=== PATIENT | male | born 1945 | race Caucasian/White ===

== ENCOUNTER 2017-01-15 19:54 | Observation (INO) ==
[2017-01-15] MEDS ORDERED: Ipratropium/Albuterol Neb 3 ML IH ONE (20:01)
--- NOTE | 2017-01-15 20:01 | Emergency Department Note ---
Disposition Clinical Impression: Sepsis syndrome Fever Qualifiers: Fever type: unspecified Qualified Code(s): R50.9 - Fever, unspecified Disposition: Admitted As Inpatient Condition: Fair Referrals: Moraima Kaufman CNP [Primary Care Provider] - Forms: ED Satisfaction Letter SOB HPI - General Chief Complaint: ED Shortness of Breath/Dyspnea Stated Complaint: nasrin Time Seen by Provider: 01/15/17 19:56 Source: patient Mode of arrival: private vehicle Limitations: no limitations Nursing Notes Reviewed: Yes Vital Signs Reviewed: Yes - History of Present Illness Patient states he had onset of shortness of breath this a.m. while mowing on a riding lawnmower. He states that he subsequently has had dyspnea on exertion, fever to 103 at home as well as some nausea and lightheadedness. He denies any orthopnea or any increased cough. He denies any ill exposures or any new lower extremity swelling or pain. He states he did have a common femoral artery endarterectomy to his right lower extremity about 4 weeks ago but has not had any pain or swelling to that leg. He has not had unintended weight gain or lower extremity edema. He denies any ill exposures. He did report some scant anterior chest discomfort which he cannot describe. He denies any pain with respiration or motion. He has had significant history of heart disease with triple coronary artery bypass graft in 2008, cardiac stent in 2009 and aortic valve replacement in 2011. Pt Subjective Complaint: shortness of breath Onset (ago): hour(s) Severity: moderate Consistency/Duration: constant Improves with: rest Worsens with: exertion Known history of: COPD, congestive heart failure, diabetes, DVT Associated symptoms: Reports: chest pain (Vague), fever, wheezing, nausea/ vomiting. Denies: pain with inspiration, cough, sputum production, orthopnea, lower extremity pain, polyuria, polydipsia, parasthesias, palpitations, hemoptysis, diaphoresis, syncope, abdominal pain, rash Treatment prior to arrival: none Cough present: No - Related Data Home oxygen amount: none Home Medications Medication Instructions Recorded Confirmed Aspirin Enteric Coated [Aspirin EC] 81 mg PO BID 06/07/15 01/15/17 Lisinopril [Zestril] 20 mg PO DAILY 06/07/15 01/15/17 Metoprolol [Lopressor] 50 mg PO BID 06/07/15 01/15/17 Omeprazole [PriLOSEC] 20 mg PO DAILY 06/07/15 01/15/17 Budesonide/Formoterol 160/4.5 1 puff IH BID 09/28/15 01/15/17 [Symbicort 160/4.5] Albuterol Sulfate [Ventolin Hfa] 2 puff IH Q6H PRN 12/13/16 01/15/17 Metformin HCl [Glucophage] 1,000 mg PO BID 12/13/16 01/15/17 Tiotropium [place] [Spiriva 2 puff IH DAILY 12/13/16 01/15/17 Respimat] Pravastatin Sodium [Pravachol] 20 mg PO 01/15/17 Allergies Allergy/AdvReac Type Severity Reaction Status Date / Time No Known Allergies Allergy Verified 12/13/16 11:51 All systems ED: reviewed and negative except as stated. Past Medical History - Past Medical History Attestation: Yes The following information was validated with the patient. Source: patient, old records reviewed, nursing notes reviewed Medical history: Reports: arthritis, CHF, COPD, coronary artery disease, DVT, diabetes, glaucoma, hyperlipidemia, hypertension, kidney stones, myocardial infarction, peripheral artery disease, valvular heart disease (Aortic stenosis) Surgical history: Reports: angioplasty/stent (2009), coronary bypass (CABG) ( 2008), orthopedic, other (Right hip replacement), vascular surgery (Aortic valve replacement 2011, right common femoral artery endarterectomy 2016), other (Eye laser surgery, lithotripsy) Psychiatric history: Reports: no psych history - Social History Smoking Status: Never smoker Smokeless Tobacco Status: No Alcohol use: Reports: none Drug use: Reports: none Physical Exam - General Limitations: no limitations General appearance: alert, in no apparent distress - Head Head exam: atraumatic, normocephalic, normal inspection - Eye Eye exam: Present: normal appearance, PERRL, EOMI - ENT ENT exam: normal exam, normal oropharynx, mucous membranes moist - Neck Neck exam: Present: normal inspection, full ROM, trachea midline. Absent: tenderness, lymphadenopathy - Chest Chest inspection: Present: normal inspection, symmetric chest wall rise. Absent : tenderness - Respiratory Respiratory exam: Present: wheezes, prolonged expiratory phase. Absent: respiratory distress, accessory muscle use - Cardiovascular Cardiovascular exam: Present: regular rate, normal rhythm, normal heart sounds. Absent: JVD - Abdominal Exam Abdominal exam: Present: soft, Non-Tender, normal bowel sounds. Absent: tenderness, distention, guarding, rebound, rigidity - Extremities Exam Extremities exam: Present: normal inspection, full ROM, normal capillary refill. Absent: tenderness, pedal edema, calf tenderness - Expanded Lower Extremity Exam Neurovascular/Tendon exam: Present: normal capillary refill. Absent: motor deficit, sensory deficit, tendon deficit Gait: observed and normal - Back Exam Back exam: Present: normal inspection, full ROM. Absent: tenderness, CVA tenderness (R), CVA tenderness (L), vertebral tenderness - Neurological Exam Neurological exam: Present: alert, oriented X3 - Psychiatric Psychiatric exam: Present: normal affect, normal mood - Skin Skin exam: Present: warm, dry, intact, normal color. Absent: rash, diaphoresis , pallor Course Course Narrative: 2229: With return of all lab, the EKG and imaging, source for the patient's fever and malaise is unclear. I discussed care with Dr. Blackmon who would like the patient to have urinalysis when he is able to go and to start vancomycin and Rocephin until cultures are returning. This has been discussed with the patient's and himself and they are agreeable with this plan. Verbal orders have been obtained for the patient's admission and first doses of antibiotics have been ordered. Vital Signs Temperature 100.8 F H 01/15/17 19:55 Pulse Rate 97 01/15/17 19:55 Respiratory Rate 32 01/15/17 19:55 Blood Pressure 145/75 01/15/17 19:55 O2 Sat by Pulse Oximetry 95 01/15/17 19:55 Temperature 100.8 F H 01/15/17 19:55 Pulse Rate 99 01/15/17 21:51 Respiratory Rate 20 01/15/17 21:51 Blood Pressure 106/57 01/15/17 21:51 O2 Sat by Pulse Oximetry 91 01/15/17 21:51 Oxygen Delivery Oxygen Delivery Room Air Shortness of Breath/Dyspnea - Differential Diagnosis Likely: acute exacerbation of chronic obstructive airways disease, congestive heart failure, pneumonia - Medical Records Medical records reviewed: Yes I reviewed the patient's medical records. - Lab Data Lab results reviewed: Yes I reviewed the patient's lab results. Result diagrams: 01/15/17 20:30 01/15/17 20:30 Lab Results 01/15/17 01/15/17 01/15/17 Range/Units 20:30 20:30 20:30 WBC 12.6 H (4.3-11.1) K/mcL RBC 4.52 (4.19-5.50) M/mcL Hgb 10.6 L (12.9-16.9) g/dL Hct 33.9 L (37.5-50.1) % MCV 75.0 L (83.0-100.0) fL MCH 23.5 L (28.0-33.3) pg MCHC 31.3 L (31.6-35.5) g/dL RDW 15.6 H (11.5-14.5) % Plt Count 224 (140-400) K/mcL MPV 10.3 (9.4-12.4) fL Immature Gran % 0.6 (0-4) % Seg Neutrophils % 85.1 % Lymphocytes % 7.2 % Monocytes % 6.9 % Eosinophils % 0.0 % Basophils % 0.2 % Neutrophils # 10.7 H (1.6-8.9) K/mcL Lymphocytes # 0.9 (0.6-4.6) K/mcL Monocytes # 0.9 (0.0-1.3) K/mcL Eosinophils # 0.0 (0.0-0.6) K/mcL Basophils # 0.0 (0.0-0.2) K/mcL PT 14.3 H (9.4-12.1) Seconds INR 1.3 APTT 27.7 (26.0-36.0) Seconds D-Dimer 754 H (0-500) ng/mLFEU VBG Lactic Acid (0.5-2.2) mmol/L Sodium 134 L (136-145) mEq/L Potassium 4.4 (3.5-4.5) mEq/L Chloride 100 (98-109) mEq/L Carbon Dioxide 20 (19-29) mEq/L BUN 11 (8-26) mg/dL Creatinine 0.98 (0.72-1.25) mg/dL Est GFR ( Amer) > 60 (> 60) Est GFR (Non-Af Amer) > 60 (> 60) BUN/Creatinine Ratio 11 (6-26) Glucose 186 H (70-99) mg/dL Calculated Osmolality 282 (280-300) Calcium 9.5 (8.6-10.8) mg/dL Troponin I (0-0.03) ng/mL B-Natriuretic Peptide (0-100) pg/mL 01/15/17 01/15/17 01/15/17 Range/Units 20:30 20:30 20:30 WBC (4.3-11.1) K/mcL RBC (4.19-5.50) M/mcL Hgb (12.9-16.9) g/dL Hct (37.5-50.1) % MCV (83.0-100.0) fL MCH (28.0-33.3) pg MCHC (31.6-35.5) g/dL RDW (11.5-14.5) % Plt Count (140-400) K/mcL MPV (9.4-12.4) fL Immature Gran % (0-4) % Seg Neutrophils % % Lymphocytes % % Monocytes % % Eosinophils % % Basophils % % Neutrophils # (1.6-8.9) K/mcL Lymphocytes # (0.6-4.6) K/mcL Monocytes # (0.0-1.3) K/mcL Eosinophils # (0.0-0.6) K/mcL Basophils # (0.0-0.2) K/mcL PT (9.4-12.1) Seconds INR APTT (26.0-36.0) Seconds D-Dimer (0-500) ng/mLFEU VBG Lactic Acid 3.5 H (0.5-2.2) mmol/L Sodium (136-145) mEq/L Potassium (3.5-4.5) mEq/L Chloride (98-109) mEq/L Carbon Dioxide (19-29) mEq/L BUN (8-26) mg/dL Creatinine (0.72-1.25) mg/dL Est GFR ( Amer) (> 60) Est GFR (Non-Af Amer) (> 60) BUN/Creatinine Ratio (6-26) Glucose (70-99) mg/dL Calculated Osmolality (280-300) Calcium (8.6-10.8) mg/dL Troponin I 0.02 (0-0.03) ng/mL B-Natriuretic Peptide 235 H (0-100) pg/mL - Radiology Data Radiology results reviewed: Yes I reviewed the patient's radiology results. Single view chest x-ray is performed. This shows a poor inspiration, but does not demonstrate evidence for infiltrate, effusion, pneumothorax, foreign body or heart failure. The cardiac silhouette is enlarged. I do not see abnormality to the osseous structures of the chest. This is on my interpretation. Impressions Chest X-Ray 01/15/17 20:01 IMPRESSION: Low lung volume exam with suspected cardiomegaly and mild pulmonary vascular congestion. D/ / 01/15/2017 21:03:50 Duane Aguilera MD / earnold Interpreting Provider: Duane Aguilera MD Chest CTA 01/15/17 21:00 IMPRESSION: No evidence of pulmonary embolism or acute pulmonary abnormality. D/ / Francisco Gomez MD / Francisco Gomez MD Interpreting Provider: Francisco Gomez MD - EKG Data EKG attestation: Yes I reviewed and interpreted this EKG. EKG shows normal: Reports: sinus rhythm, axis, intervals Rate: Reports: normal (95) P waves: Reports: LAE Q waves: Reports: II, III, aVF T wave inversions noted in: Reports: I, aVL, aVR, v1, v2 Interpretation: Reports: no acute changes, unchanged when compared to prior tracing (date) (No significant change from 11/08/2016), nonspecific ST-T wave changes Critical Care Time Critical Care Time: Yes Total Critical Care Time: 45 Attestation: As this patient did present with signs and symptoms of potential life- threatening illness requiring my urgent intervention, total critical care time in this patient's care has been 45 minutes, not withstanding separately reportable procedures.
[2017-01-15] MEDS ORDERED: Ondansetron 4 MG/2 ML VIAL IVP ONE (20:18)
[2017-01-15 20:39] LABS: Basophils % 0.2 %; Hematocrit 33.9 % (37.5-50.1); Hemoglobin 10.6 g/dL (12.9-16.9); Immature Granulocytes % 0.6 % (0-4); Lymphocytes # 0.9 K/mcL (0.6-4.6); Lymphocytes % 7.2 %; Mean Corpuscular HGB Conc 31.3 g/dL (31.6-35.5); Mean Corpuscular Hemoglobin 23.5 pg (28.0-33.3); Mean Platelet Volume 10.3 fL (9.4-12.4); Monocytes # 0.9 K/mcL (0.0-1.3); Monocytes % 6.9 %; Neutrophils # 10.7 K/mcL (1.6-8.9); Platelet Count 224 K/mcL (140-400); Red Blood Count 4.52 M/mcL (4.19-5.50); Red Cell Distribution Width 15.6 % (11.5-14.5); Segmented Neutrophils % 85.1 %
[2017-01-15] MEDS ORDERED: Acetaminophen 325 MG TABLET PO ONE ×2 (20:43→21:00)
[2017-01-15] MEDS ORDERED: Ketorolac 30 MG/ML VIAL IVP ONE (20:43)
[2017-01-15 20:45] LABS: INR 1.3; Prothrombin Time 14.3 Seconds (9.4-12.1)
[2017-01-15 20:48] LABS: Activated Partial Thrombo Time 27.7 Seconds (26.0-36.0)
[2017-01-15 20:54] LABS: BUN/Creatinine Ratio 11 (6-26); Blood Urea Nitrogen 11 mg/dL (8-26); Calcium 9.5 mg/dL (8.6-10.8); Carbon Dioxide 20 mEq/L (19-29); Chloride 100 mEq/L (98-109); Glucose 186 mg/dL (70-99); Osmolality,Calculated 282 (280-300); Potassium 4.4 mEq/L (3.5-4.5); Sodium 134 mEq/L (136-145); eGFR For African Americans > 60 (> 60); eGFR For Non-African Americans > 60 (> 60)
[2017-01-15] MEDS: 0.9 % Sodium Chloride 1,000 ML IVC SCH (21:11)
[2017-01-15] MEDS ORDERED: Vancomycin 1,250 MG in D5% in Water 250 ML IVPB SCH (22:34)
[2017-01-15] MEDS ORDERED: D5% in Water 1,000 ML IVC PRN (22:37)
[2017-01-15] MEDS ORDERED: MOM Conc 10 ML UD.LIQ PO PRN (22:37)
[2017-01-15] MEDS ORDERED: Ondansetron 4 MG/2 ML VIAL IVP PRN (22:37)
[2017-01-15] MEDS ORDERED: Naloxone 0.4 MG/ML INJ IVP PRN (22:37)
[2017-01-15] MEDS ORDERED: *HR* Dextrose 50 % in Water (Syg) 50 ML SYRINGE IVP PRN (22:37)
[2017-01-15] MEDS ORDERED: Dextrose Gel 15 GM PO PRN ×2 (22:37)
[2017-01-15] MEDS ORDERED: Albuterol 2.5 MG/3 ML NEBULIZER IH PRN (22:43)
[2017-01-15] MEDS ORDERED: 0.9 % Sodium Chloride 1,000 ML IVC ONE (22:56)
[2017-01-16] MEDS: 0.9 % Sodium Chloride 1,000 ML IVC SCH ×3 (00:18→13:07)
[2017-01-16] MEDS: Vancomycin 1,000 MG in D5% in Water 250 ML IVPB SCH ×2 (01:06→04:35)
[2017-01-16] MEDS: Acetaminophen 325 MG TABLET PO PRN ×2 (02:04→10:16)
[2017-01-16] MEDS ORDERED: Ipratropium/Albuterol Neb 3 ML IH SCH (04:00)
[2017-01-16 06:42] LABS: Bilirubin,Urine Negative (Negative); Blood,Urine Negative (Negative); Clarity,Urine Clear (Clear); Color,Urine Yellow (Yellow); Glucose,Urine (UA) Normal (Normal); Ketones,Urine Negative (Negative); Leukocyte Esterase,Urine Negative (Negative); Nitrite,Urine Negative (Negative); PH,Urine 5.5 pH Units (5.0-8.0); Protein,Urine Trace mg/dL (Neg-Trace); Urobilinogen,Urine Normal (Normal)
[2017-01-16] MEDS: Insulin LISPRO 300 UNITS/3 ML VIAL SQ SCH ×2 (07:48→11:49)
[2017-01-16] MEDS ORDERED: *HR* Metformin 500 MG TABLET PO SCH (08:00)
[2017-01-16] MEDS ORDERED: Aspirin Enteric Coated 81 MG Tablet PO SCH (09:00)
[2017-01-16] MEDS ORDERED: Tiotropium 18 MCG inhalation IH SCH (10:00)
[2017-01-16] MEDS ORDERED: Budesonide/Formoterol 160/4.5 MDI IH SCH (10:00)
[2017-01-16] MEDS ORDERED: Vancomycin 1,750 MG in D5% in Water 500 ML IVPB SCH (13:00)
[2017-01-16 13:23] VITALS: BP 116/73
[2017-01-16] MEDS ORDERED: Vancomycin 1,500 MG in D5% in Water 250 ML IVPB SCH ×2 (14:00→15:00)
--- NOTE | 2017-01-16 14:10 | Internal Med History&Physical ---
Date of Encounter: 01/16/17 Time of Encounter: 13:30 Assessment and Plan (1) Fever Current visit: Yes Status: Acute Suspect viral etiology. He was given Rocephin and vancomycin in emergency room. Qualifiers: Fever type: unspecified Qualified Code(s): R50.9 - Fever, unspecified (2) Anemia Current visit: Yes Status: Acute Suspect iron deficiency secondary to aspirin use. Qualifiers: Anemia type: unspecified type Qualified Code(s): D64.9 - Anemia, unspecified Internal Medicine - H&P: HPI Chief complaint: Dyspnea and fever Admitted From: Home Plans for Post Hospital Care: Home History of present illness: Mr. Salazar is a 71 year old male who came to emergency room stating he had onset of dyspnea with fever and chills earlier in the day. He states his temperature mad[place] to 103. He had nausea but no vomiting or diarrhea. He had a cough with minimal productivity of white phlegm. He stated there was diffuse myalgia and arthralgia. He was evaluated in emergency room and admitted to [facility] floor for ongoing care needs. He states he feels significantly improved at the present time with resolution of nausea and arthralgias. He denies previous similar episodes. He denies other household contacts with similar illnesses. Past Med Surg Social Fam HX - Past Medical History Medical history: arthritis, CHF, COPD, coronary artery disease, DVT, diabetes, glaucoma, hyperlipidemia, hypertension, kidney stones, myocardial infarction, peripheral artery disease, valvular heart disease Psychiatric history: no psych history - Past Surgical History Surgical History: angioplasty/stent, coronary bypass (CABG), orthopedic, other, vascular surgery, other - Social History Smoking Status: Never smoker Smokeless Tobacco Status: No Alcohol use: none Drug use: none Internal Medicine - H&P: Meds Aspirin Enteric Coated [Aspirin EC] 81 mg PO BID 06/07/15 [History] Lisinopril [Zestril] 20 mg PO DAILY 06/07/15 [History] Metoprolol [Lopressor] 50 mg PO BID 06/07/15 [History] Omeprazole [PriLOSEC] 20 mg PO DAILY 06/07/15 [History] Budesonide/Formoterol 160/4.5 [Symbicort 160/4.5] 1 puff IH BID 09/28/15 [ History] Albuterol Sulfate [Ventolin Hfa] 2 puff IH Q6H PRN 12/13/16 [History] Metformin HCl [Glucophage] 1,000 mg PO BID 12/13/16 [History] Tiotropium [place] [Spiriva Respimat] 2 puff IH DAILY 12/13/16 [History] Pravastatin Sodium [Pravachol] 20 mg PO 01/15/17 [History] Allergies No Known Allergies Allergy (Verified 12/13/16 11:51) All Systems PM: A 10-system review of systems was performed and is negative for pertinent findings except as documented above in the HPI. Review of systems: Gen.: His weight has been stable since the fibber 2016 hospitalization Cardiovascular: His cardiovascular history is significant for hypertension. He has known ASHD status post DE in 1978. He had three-vessel CABG surgery 2008. He had a coronary stent placed in 2009. He had aortic valve replacement 2011 at [facility]. He denies stress test or heart catheterization since the 2011 valve replacement. He did have a large DVT approximately 1999 following right hip surgery. He had an echocardiogram done June 2015 which showed LVEF 60% with mild diastolic dysfunction seen. Left atrial enlargement at 4.6 cm. He has not had known pulmonary embolism. He reports having right common femoral endarterectomy by Dr. Alfonso approximately 5 weeks ago at [facility]. His postop course was unremarkable. Respiratory: He smoked from age [age] up to 1-1/2 packs per day. He has not had PFTs but claims a diagnosis of COPD. He does not wear home oxygen. He has been diagnosed with JESSICA but states he cannot tolerate CPAP mask. GI: He has NAFLD. He has a hiatal hernia and has had colon polyps removed. He denies other disorders of his liver gallbladder or exocrine pancreas : He had kidney stones several years ago with ultrasonic removal. He denies other kidney bladder prostate disorders Neurologic: He denies large distribution strokes or seizures. Endocrine: He was diagnosed with DM 2 approximately 2010. He has hypertriglyceridemia. He denies thyroid disease. Hematology/oncology: He denies blood disorders or internal malignancies Psychiatric: He denies anxiety depression or other mental health issues Musk skeletal: He had a right hip fracture repair repair in 1999. He denies other bone joint or muscle disorders. - Constitutional Vitals: Temp Pulse Resp BP Pulse Ox 99.1 F 89 17 116/73 93 01/16/17 11:30 01/16/17 11:30 01/16/17 11:30 01/16/17 11:30 01/16/17 11:30 Exam: Gen.: He is a well-developed well-nourished male who appears in no acute distress at present time HEENT: Head is atraumatic and normocephalic. Eyes: EOMI. There is no scleral icterus. Mouth: Mucosa is moist. Neck: Supple and nontender. There is no thyromegaly or adenopathy noted. Heart: Regular without murmurs gallops or ectopics Lungs: No wheezes or crackles heard Abdomen: Soft and nontender. No masses or guarding are noted. Extremities: There is no cyanosis edema or clubbing noted. Dorsalis pedis and posttibial pulses are 1-2 over 2 bilaterally. Neurologic: Mental status: He is talkative and a good historian. Cranial nerves : Smile is symmetric. Forehead wrinkles bilaterally. Tongue protrudes midline. EOMI. Motor: There is no pronator drift. Cerebellar: Finger to nose is intact bilaterally. Skin: Warm and dry Internal Med - H&P Results - Labs CBC & Chem 7: 01/15/17 20:30 01/15/17 20:30 Labs: Cardiac Enzymes 01/16/17 Range/Units 08:35 Troponin I 0.03 (0-0.03) ng/mL - VTE Documentation of Mechanical Device: Graduated compression elastic hosiery
--- NOTE | 2017-01-16 14:22 | Discharge Summary ---
Date of Encounter: 01/16/17 Time of Encounter: 13:30 - Discharge Diagnosis (1) Fever Priority: Primary Status: Acute Qualifiers: Fever type: unspecified Qualified Code(s): R50.9 - Fever, unspecified (2) Anemia Priority: Secondary Status: Acute Qualifiers: Anemia type: unspecified type Qualified Code(s): D64.9 - Anemia, unspecified - Discharge Medications Home Medications: Aspirin Enteric Coated [Aspirin EC] 81 mg PO BID 06/07/15 [History] Lisinopril [Zestril] 20 mg PO DAILY 06/07/15 [History] Metoprolol [Lopressor] 50 mg PO BID 06/07/15 [History] Omeprazole [PriLOSEC] 20 mg PO DAILY 06/07/15 [History] Budesonide/Formoterol 160/4.5 [Symbicort 160/4.5] 1 puff IH BID 09/28/15 [ History] Albuterol Sulfate [Ventolin Hfa] 2 puff IH Q6H PRN 12/13/16 [History] Metformin HCl [Glucophage] 1,000 mg PO BID 12/13/16 [History] Tiotropium [place] [Spiriva Respimat] 2 puff IH DAILY 12/13/16 [History] Pravastatin Sodium [Pravachol] 20 mg PO 01/15/17 [History] Allergies/Adverse Reactions: Allergies No Known Allergies Allergy (Verified 12/13/16 11:51) Date of admission: 01/15/17 23:28 Primary care physician: Moraima Kaufman CNP - Patient Status Disposition: Home, Self-Care Condition: Fair Overall status at discharge: patient is progressing back to baseline - Discharge Instructions Follow Up With: Moraima Kaufman CNP [Primary Care Provider] - 1 week - Diet and Activity Activity: resume usual activities as tolerated Diet: advance to your usual diet Hospital course: Mr. Salazar is a 71 year old male who came to emergency room stating he had onset of dyspnea with fever and chills earlier in the day. He states his temperature madina to 103. He had nausea but no vomiting or diarrhea. He had a cough with minimal productivity of white phlegm. He stated there was diffuse myalgia and arthralgia. He was evaluated in emergency room and admitted to [facility] for ongoing care needs. Initial orders were written by the emergency room physician. I saw him on January 16 and performed the history and physical and discharge. His temperature improved quickly after admission and he had no further temperature spikes. When I saw him he stated his dyspnea had significantly improved and his nausea had resolved. His arthralgias and myalgias were also improved. Chest CT result was reviewed. His urinalysis was negative for evidence of infection. He felt stable for discharge home. I suspect he had a viral infection. I explained he might be contagious for the next few days. He will follow with his PCP Moraima Kaufman CNP within 1 week. I will not give antibiotics at this time. No workup was done for anemia during his hospital stay. I suspect he has iron deficiency from use of aspirin and impaired iron absorption from concurrent PPI usage. - Time Spent with Patient Total time spent providing and/or coordinating discharge services: - Constitutional Vitals: Temp Pulse Resp BP Pulse Ox 99.1 F 89 17 116/73 93 01/16/17 11:30 01/16/17 11:30 01/16/17 11:30 01/16/17 11:30 01/16/17 14:00 - VTE Documentation of Mechanical Device: Graduated compression elastic hosiery
--- NOTE | 2017-01-16 15:51 | Electrocardiograph Report ---
[address] [place], [place] [address] Test Date: 2017-01-15 Pat Name: Kunal Salazar Department: [id number] Room: [facility] Gender: M Desolderer: : 1945 Requested By: Francisco Santiago Order Number: [id number] Reading MD: Akash Giordano MD Measurements Intervals [place] Rate: 95 P: 28 LA: 133 QRS: 5 QRSD: 106 T: 101 QT: 316 QTc: 368 Interpretive Statements SINUS RHYTHM LEFT ATRIAL ENLARGEMENT INFERIOR MYOCARDIAL INFARCTION, PROBABLY OLD WITH POSTERIOR EXTENSION Electronically Signed On 01-16-2017 15:49:54 EDT by Akash Giordano MD
== END 2017-01-16 14:49 | disposition home or self-care (01) ==
LOC: INPPIK 19:54 → EMEROOPIK 19:54 → INPPIK 23:39
PROVIDERS: ADMIT Internal Medicine; ATTEND Internal Medicine

== ENCOUNTER 2018-04-03 15:53 | Observation (INO) ==
[2018-04-03] MEDS ORDERED: Aspirin 81 MG TAB.CHEW PO ONE (15:58)
--- NOTE | 2018-04-03 16:06 | Emergency Department Note ---
Disposition Clinical Impression: Dyspnea Qualifiers: Dyspnea type: unspecified Qualified Code(s): R06.00 - Dyspnea, unspecified Chest pain Qualifiers: Chest pain type: precordial pain Qualified Code(s): R07.2 - Precordial pain Disposition: Admitted As Inpatient Condition: Fair Referrals: Moraima Kaufman, MAGGY [Primary Care Provider] - Forms: ED Satisfaction Letter Time of Disposition: 16:58 Chest Pain HPI - General Chief Complaint: ED Shortness of Breath/Dyspnea Stated Complaint: Chest pain Time Seen by Provider: 04/03/18 15:58 Source: patient Mode of arrival: private vehicle Limitations: no limitations Vital Signs Reviewed: Yes Nursing Notes Reviewed: Yes - History of Present Illness HPI Narrative: Patient reports he has had shortness of breath "for a long time" but that it has been worse last couple days. Today he also developed a dull chest pain which he states has been all day today since this morning. He relates this is the pain that he gets "every once in a while" but he is usually not persistent. He notes that occasionally has a sharp pain with a deep breath, cough or motion. The discomfort is in the left low sternal region and he rates it a 4 on a scale of 1-10. He does note dyspnea on exertion and also the chest discomfort gets worse with activity. The pain does not radiate to his jaw, back or arms. He denies weakness or dizziness. Denies increased cough or any fevers or chills. He has had some occasional sweats but no nausea or vomiting. He does have periodic lower extremity edema he states currently just his left foot is a little swollen. He denies any other abdominal complaints. He states his current discomfort is like he has had before when he has been having a heart pain. He has taken his usual aspirin this morning and has not taken other medications. He has driven himself to the emergency department and walked in without difficulty. Pt complaint: chest pain, other (Short of breath) Onset (ago): hour(s) (10) Duration: constant Onset: during rest Pain Location: substernal, left chest Severity: mild, moderate Severity scale (1-10): 4 Quality: sharp, dull Pain Radiation: none Improves with: nothing Worsens with: exertion Associated symptoms: Reports: diaphoresis, dyspnea, leg swelling. Denies: nausea, vomiting, syncope, palpitations, fever, cough Treatments prior to arrival chest pain: aspirin - Related Data Home Medications Medication Instructions Recorded Confirmed Aspirin Enteric Coated [Aspirin EC] 81 mg PO BID 06/07/15 04/03/18 Lisinopril [Zestril] 20 mg PO DAILY 06/07/15 04/03/18 Metoprolol [Lopressor] 50 mg PO BID 06/07/15 04/03/18 Omeprazole [PriLOSEC] 20 mg PO DAILY 06/07/15 04/03/18 Albuterol Sulfate [Ventolin Hfa] 2 puff IH Q6H PRN 12/13/16 04/03/18 Metformin HCl [Glucophage] 1,000 mg PO BID 12/13/16 04/03/18 Tiotropium [place] [Spiriva 2 puff IH DAILY 12/13/16 04/03/18 Respimat] Pravastatin Sodium [Pravachol] 20 mg PO DAILY 01/15/17 04/03/18 Fluticasone/Vilanterol [Breo 1 puff IH BID 01/19/17 04/03/18 Ellipta 200-25 Mcg INH] HYDROcodone/Acet 7.5/325 mg [[place] 1 tab PO BID PRN 01/19/17 04/03/18 7.5-325 mg] Previous Rx's Medication Instructions Recorded levoFLOXacin [Levaquin] 500 mg PO DAILY #10 tablet 10/21/17 predniSONE [PredniSONE] 40 mg PO DAILY #10 tablet 10/21/17 Allergies Allergy/AdvReac Type Severity Reaction Status Date / Time No Known Allergies Allergy Verified 12/13/16 11:51 All systems ED: reviewed and negative except as stated. Chest Pain PMH - Past Medical History Medical history: Reports: arthritis, CHF, COPD, coronary artery disease, DVT, diabetes, glaucoma, hyperlipidemia, hypertension, kidney stones, myocardial infarction, peripheral artery disease, valvular heart disease Surgical history: Reports: angioplasty/stent, coronary bypass (CABG), orthopedic , other, vascular surgery, other Psychiatric history: Reports: no psych history - Social History Smoking Status: Former smoker Alcohol use: Reports: none Drug use: Reports: none Physical Exam - General Limitations: no limitations General appearance: alert, in no apparent distress - Head Head exam: atraumatic, normocephalic, normal inspection - Eye Eye exam: Present: normal appearance, PERRL, EOMI. Absent: conjunctival injection - ENT ENT exam: normal exam, normal oropharynx, mucous membranes moist - Neck Neck exam: Present: normal inspection, full ROM, trachea midline - Chest Chest inspection: Present: normal inspection, symmetric chest wall rise. Absent : tenderness - Respiratory Respiratory exam: Present: wheezes, prolonged expiratory phase. Absent: respiratory distress, accessory muscle use - Cardiovascular Cardiovascular exam: Present: regular rate, normal rhythm, normal heart sounds. Absent: tachycardia, JVD - Abdominal Exam Abdominal exam: Present: soft, Non-Tender, normal bowel sounds. Absent: tenderness, distention, guarding, rebound, rigidity - Extremities Exam Extremities exam: Present: normal inspection, full ROM, normal capillary refill , pedal edema (1+ edema on the left foot and ankle.). Absent: tenderness, calf tenderness - Expanded Lower Extremity Exam Neurovascular/Tendon exam: Present: normal capillary refill. Absent: motor deficit, sensory deficit, tendon deficit Gait: observed and normal - Back Exam Back exam: Present: normal inspection, full ROM. Absent: tenderness, CVA tenderness (R), CVA tenderness (L) - Neurological Exam Neurological exam: Present: alert, oriented X3 - Psychiatric Psychiatric exam: Present: normal affect, normal mood - Skin Skin exam: Present: warm, dry, intact, normal color. Absent: rash, diaphoresis , pallor Course Course Narrative: 1654: With return of all testing, care is been discussed with the patient and his . He is having significant dyspnea on exertion at home and the chest pain. With this discomfort feeling reminiscent of pains he has had with heart pain, I believe it be prudent to admit for observation. I spoken with Dr. Blackmon and verbal orders are obtained for his observation. He has been given a dose of Lasix in the department given mild edema per radiology read on his chest x-ray. Vital Signs O2 Sat by Pulse Oximetry 97 04/03/18 15:54 Temperature 97.7 F 04/03/18 15:55 Pulse Rate 58 04/03/18 16:27 Respiratory Rate 24 04/03/18 16:27 Blood Pressure 127/54 04/03/18 16:27 O2 Sat by Pulse Oximetry 97 04/03/18 16:27 Oxygen Delivery Oxygen Delivery Nasal Cannula Chest Pain - Differential Diagnosis Likely: atypical chest pain, costalchondritis, chest pain - Medical Records Medical records reviewed: Yes I reviewed the patient's medical records. - Lab Data Lab results reviewed: Yes I reviewed the patient's lab results. Result diagrams: 04/03/18 16:13 04/03/18 16:13 Lab Results 04/03/18 04/03/18 04/03/18 Range/Units 16:13 16:13 16:13 WBC 6.3 (4.3-11.1) K/mcL RBC 4.16 L (4.19-5.50) M/mcL Hgb 11.2 L (12.9-16.9) g/dL Hct 35.3 L (37.5-50.1) % MCV 84.9 (83.0-100.0) fL MCH 26.9 L (28.0-33.3) pg MCHC 31.7 (31.6-35.5) g/dL RDW 14.3 (11.5-14.5) % Plt Count 189 (140-400) K/mcL MPV 10.4 (9.4-12.4) fL Immature Gran % 1.0 (0-4) % Seg Neutrophils % 49.9 % Lymphocytes % 36.8 % Monocytes % 9.9 % Eosinophils % 2.1 % Basophils % 0.3 % Neutrophils # 3.1 (1.6-8.9) K/mcL Lymphocytes # 2.3 (0.6-4.6) K/mcL Monocytes # 0.6 (0.0-1.3) K/mcL Eosinophils # 0.1 (0.0-0.6) K/mcL Basophils # 0.0 (0.0-0.2) K/mcL PT 12.2 H (9.4-12.1) Seconds INR 1.1 APTT 32.5 (26.0-36.0) Seconds Sodium (136-145) mEq/L Potassium (3.5-5.1) mEq/L Chloride (98-107) mEq/L Carbon Dioxide (23-29) mEq/L BUN (8-23) mg/dL Creatinine (0.70-1.30) mg/dL Est GFR ( Amer) (> 60) Est GFR (Non-Af Amer) (> 60) BUN/Creatinine Ratio (6-26) Glucose (70-105) mg/dL Calculated Osmolality (280-300) Calcium (8.6-10.3) mg/dL Troponin I (< 0.04) ng/mL B-Natriuretic Peptide 308 H (Less than 100) pg/mL 04/03/18 Range/Units 16:13 WBC (4.3-11.1) K/mcL RBC (4.19-5.50) M/mcL Hgb (12.9-16.9) g/dL Hct (37.5-50.1) % MCV (83.0-100.0) fL MCH (28.0-33.3) pg MCHC (31.6-35.5) g/dL RDW (11.5-14.5) % Plt Count (140-400) K/mcL MPV (9.4-12.4) fL Immature Gran % (0-4) % Seg Neutrophils % % Lymphocytes % % Monocytes % % Eosinophils % % Basophils % % Neutrophils # (1.6-8.9) K/mcL Lymphocytes # (0.6-4.6) K/mcL Monocytes # (0.0-1.3) K/mcL Eosinophils # (0.0-0.6) K/mcL Basophils # (0.0-0.2) K/mcL PT (9.4-12.1) Seconds INR APTT (26.0-36.0) Seconds Sodium 136 (136-145) mEq/L Potassium 4.1 (3.5-5.1) mEq/L Chloride 99 (98-107) mEq/L Carbon Dioxide 27 (23-29) mEq/L BUN 8 (8-23) mg/dL Creatinine 0.85 (0.70-1.30) mg/dL Est GFR ( Amer) > 60 (> 60) Est GFR (Non-Af Amer) > 60 (> 60) BUN/Creatinine Ratio 9 (6-26) Glucose 155 H (70-105) mg/dL Calculated Osmolality 283 (280-300) Calcium 9.3 (8.6-10.3) mg/dL Troponin I < 0.03 (< 0.04) ng/mL B-Natriuretic Peptide (Less than 100) pg/mL - Radiology Data Radiology results reviewed: Yes I reviewed the patient's radiology results. Single view chest x-ray is performed. This does not demonstrate evidence for infiltrate, effusion, pneumothorax, foreign body or heart failure. The cardiac silhouette is normal. I do not see abnormality to the osseous structures of the chest. This is on my interpretation. Impressions Chest X-Ray 04/03/18 15:59 IMPRESSION: Mild pulmonary vascular congestion. Stable mild cardiomegaly. Low lung volumes. D/ / Louis Hennessy MD / Louis Hennessy MD Interpreting Provider: Louis Hennessy MD - EKG Data EKG attestation: Yes I reviewed and interpreted this EKG. EKG shows normal: sinus rhythm, axis, intervals, ST-T waves Rate: bradycardia (58) Q waves: II, III, aVF Interpretation: no acute changes, unchanged when compared to prior tracing (date ) (11/15/2016), nonspecific ST-T wave changes Heart Score - Score History: Moderately Suspicious EKG: Non Specific repolarisation Disturbance Age: Greater than 65 Risk Factors: Equal/Greater than 3 risk factor or history of atherosclerotic disease Troponin: Less than normal limit HEART Score Total: 6
[2018-04-03 16:18] LABS: Basophils % 0.3 %; Eosinophils # 0.1 K/mcL (0.0-0.6); Eosinophils % 2.1 %; Hematocrit 35.3 % (37.5-50.1); Hemoglobin 11.2 g/dL (12.9-16.9); Lymphocytes # 2.3 K/mcL (0.6-4.6); Lymphocytes % 36.8 %; Mean Corpuscular HGB Conc 31.7 g/dL (31.6-35.5); Mean Corpuscular Hemoglobin 26.9 pg (28.0-33.3); Mean Corpuscular Volume 84.9 fL (83.0-100.0); Mean Platelet Volume 10.4 fL (9.4-12.4); Monocytes # 0.6 K/mcL (0.0-1.3); Monocytes % 9.9 %; Neutrophils # 3.1 K/mcL (1.6-8.9); Platelet Count 189 K/mcL (140-400); Red Blood Count 4.16 M/mcL (4.19-5.50); Red Cell Distribution Width 14.3 % (11.5-14.5); Segmented Neutrophils % 49.9 %
[2018-04-03 16:26] LABS: INR 1.1; Prothrombin Time 12.2 Seconds (9.4-12.1)
[2018-04-03 16:29] LABS: Activated Partial Thrombo Time 32.5 Seconds (26.0-36.0)
[2018-04-03 16:33] LABS: BUN/Creatinine Ratio 9 (6-26); Blood Urea Nitrogen 8 mg/dL (8-23); Calcium 9.3 mg/dL (8.6-10.3); Carbon Dioxide 27 mEq/L (23-29); Chloride 99 mEq/L (98-107); Glucose 155 mg/dL (70-105); Osmolality,Calculated 283 (280-300); Potassium 4.1 mEq/L (3.5-5.1); Sodium 136 mEq/L (136-145); eGFR For Non-African Americans > 60 (> 60)
[2018-04-03 16:42] LABS: Troponin I < 0.03 ng/mL (< 0.04)
[2018-04-03] MEDS ORDERED: Furosemide 40 MG/4 ML VIAL IVP ONE (16:54)
[2018-04-03] MEDS ORDERED: *HR* Dextrose 50 % in Water (Syg) 50 ML SYRINGE IVP PRN (17:40)
[2018-04-03] MEDS ORDERED: Naloxone 0.4 MG/ML INJ IVP PRN (17:40)
[2018-04-03] MEDS ORDERED: Dextrose Gel 15 GM/37.5 ML TUBE PO PRN ×2 (17:40)
[2018-04-03] MEDS ORDERED: Albuterol 2.5 MG/3 ML NEBULIZER IH PRN (17:40)
[2018-04-03] MEDS ORDERED: D5% in Water 1,000 ML IVC PRN (17:40)
[2018-04-03] MEDS: *HR* HYDROcodone/Acet 7.5/325 mg TABLET PO PRN (19:21)
[2018-04-03] MEDS: Aspirin Enteric Coated 81 MG Tablet PO SCH (20:35)
[2018-04-03] MEDS: *HR* Metformin 500 MG TABLET PO SCH (20:35)
[2018-04-03] MEDS: Ipratropium/Albuterol Neb 3 ML IH SCH (21:24)
[2018-04-04] MEDS: Ipratropium/Albuterol Neb 3 ML IH SCH ×2 (04:00→08:57)
[2018-04-04] MEDS: Lisinopril 20 MG TABLET PO SCH ×2 (08:02→08:18)
[2018-04-04] MEDS: Insulin LISPRO 300 UNITS/3 ML VIAL SQ SCH ×3 (08:02→16:26)
[2018-04-04] MEDS: *HR* Metformin 500 MG TABLET PO SCH ×2 (08:17→21:43)
[2018-04-04] MEDS: Aspirin Enteric Coated 81 MG Tablet PO SCH ×2 (08:18→21:44)
--- NOTE | 2018-04-04 08:18 | Electrocardiograph Report ---
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
[2018-04-04] MEDS: Tiotropium 18 MCG inhalation IH SCH (08:57)
[2018-04-04] MEDS ORDERED: Nitroglycerin 0.4 MG TAB.SUBL SL ONE (10:07)
[2018-04-04] MEDS: Nitroglycerin 0.4 MG TAB.SUBL SL PRN ×2 (10:10→10:20)
--- NOTE | 2018-04-04 10:16 | Internal Med History&Physical ---
Date of Encounter: 04/04/18 Time of Encounter: 09:40 Assessment and Plan (1) Chest pain Current visit: Yes Status: Acute Repeat cardiac enzymes were ordered through emergency room. Since he is having discomfort presently he will be given Nitrostat sublingually. Qualifiers: Chest pain type: precordial pain Qualified Code(s): R07.2 - Precordial pain (2) Anemia Current visit: No Status: Chronic Anemia testing has not been done recently. Suspect due in part to aspirin use. Qualifiers: Anemia type: unspecified type Qualified Code(s): D64.9 - Anemia, unspecified (3) Hypertension Current visit: No Status: Chronic Continue metoprolol and lisinopril. Qualifiers: Hypertension type: essential hypertension Qualified Code(s): I10 - Essential (primary) hypertension (4) ASHD (arteriosclerotic heart disease) Current visit: No Status: Chronic Continue metoprolol and aspirin. Add isosorbide. (5) COPD (chronic obstructive pulmonary disease) Current visit: No Status: Chronic Qualifiers: COPD type: unspecified COPD Qualified Code(s): J44.9 - Chronic obstructive pulmonary disease, unspecified (6) DM type 2 (diabetes mellitus, type 2) Current visit: No Status: Chronic Hemoglobin A1c was 7.7% on 12/10/2016. Continue Glucophage and Accu-Cheks with SSI. Qualifiers: Diabetes mellitus group home insulin use: without intermediate school teacher use Diabetes mellitus complication status: with circulatory complication Diabetes mellitus complication detail: with peripheral angiopathy without gangrene Qualified Code(s): E11.51 - Type 2 diabetes mellitus with diabetic peripheral angiopathy without gangrene (7) CHF (congestive heart failure) Current visit: Yes Status: Chronic Continue metoprolol and lisinopril. Add isosorbide and Bumex. Qualifiers: Heart failure type: diastolic Heart failure chronicity: acute on chronic Qualified Code(s): I50.33 - Acute on chronic diastolic (congestive) heart failure Internal Medicine - H&P: HPI Chief complaint: Dyspnea and chest discomfort Admitted From: Emergency Dept Plans for Post Hospital Care: Home History of present illness: Mr. Salazar is a 72 year old male who came to emergency room stating he had increased dyspnea on exertion and a dull chest pain that seemed worse with activity onset 2-3 days previously. He denies cough. He did not take nitroglycerin pills at home. He was evaluated in emergency room and admitted to [facility] floor for ongoing care needs. His cardiovascular history is significant for hypertension. He has known ASHD status post DE in 1978. He had three-vessel CABG surgery 2008. He had a coronary stent placed in 2009. He had aortic valve replacement 2011 at [facility]. He denies stress test or heart catheterization since the 2012 valve replacement. He had a large DVT approximately 1999 following right hip surgery. He had an echocardiogram done July 2016 which showed LVEF 55 % with mild diastolic dysfunction seen. There was left atrial enlargement at 5.1 cm.. Intraventricular septum and posterior wall thickness measurements were 1.23 and 1.04 cm respectively. He has not had known pulmonary embolism. He had right common femoral endarterectomy by Dr. Alfonso December 2016. He smoked from age [age] up to 1-1/2 packs per day. He has not had PFTs but claims a diagnosis of COPD. He does not wear home oxygen. He has been diagnosed with JESSICA but states he cannot tolerate CPAP mask. Past Med Surg Social Fam HX - Past Medical History Medical history: arthritis, CHF, COPD, coronary artery disease, DVT, diabetes, glaucoma, hyperlipidemia, hypertension, kidney stones, myocardial infarction, peripheral artery disease, valvular heart disease Additional medical history: AORTIC STENOSIS Psychiatric history: no psych history - Past Surgical History Surgical History: angioplasty/stent, coronary bypass (CABG), orthopedic, other, vascular surgery, other Additional surgical history: AORTIC VALVE REPLACEMENT 2011. CABG X 2. Right hip - Social History Smoking Status: Former smoker Smokeless Tobacco Status: No Alcohol use: none Drug use: none - Family History Father Family Member Ethnicity: Non- Living Status: Hx Family Cardiac Disorders: Yes Hx Family Respiratory Disorders: No Hx Family Cancer: No Hx Family GI Disorders: No Hx Family Endocrine Disorder: No Hx Family Neuromuscular Disorders: No Hx Family Neurologic Disorders: No Hx Family HEENT Disorders: No Hx Family Autoimmune Disorders: No Internal Medicine - H&P: Meds Aspirin Enteric Coated [Aspirin EC] 81 mg PO BID 06/07/15 [History] Lisinopril [Zestril] 20 mg PO DAILY 06/07/15 [History] Metoprolol [Lopressor] 50 mg PO BID 06/07/15 [History] Omeprazole [PriLOSEC] 20 mg PO DAILY 10/20/15 [History] Albuterol Sulfate [Ventolin Hfa] 2 puff IH Q6H PRN 12/13/16 [History] Metformin HCl [Glucophage] 1,000 mg PO BID 12/13/16 [History] Tiotropium [place] [Spiriva Respimat] 2 puff IH DAILY 12/13/16 [History] Pravastatin Sodium [Pravachol] 20 mg PO DAILY 01/15/17 [History] Fluticasone/Vilanterol [Breo Ellipta 200-25 Mcg INH] 1 puff IH BID 01/19/17 [ History] HYDROcodone/Acet 7.5/325 mg [[place] 7.5-325 mg] 1 tab PO BID PRN 01/19/17 [ History] levoFLOXacin [Levaquin] 500 mg PO DAILY #10 tablet 10/21/17 [Rx] predniSONE [PredniSONE] 40 mg PO DAILY #10 tablet 10/21/17 [Rx] 3 Allergy/AdvReac Type Severity Reaction Status Date / Time No Known Allergies Allergy Verified 12/13/16 11:51 All Systems PM: A 10-system review of systems was performed and is negative for pertinent findings except as documented above in the HPI. Review of systems: Gen.: His weight has increased from 104.326 kg on 01/15/2017 113.398 kg on admission now Cardiovascular: As per history of present illness Respiratory: As per history of present illness GI: He has NAFLD. He has a hiatal hernia and has had colon polyps removed. He denies other disorders of his liver gallbladder or exocrine pancreas : He had kidney stones several years ago with ultrasonic removal. He denies other kidney bladder prostate disorders Neurologic: He denies large distribution strokes or seizures. Endocrine: He was diagnosed with DM 2 approximately 2010. He has hypertriglyceridemia. He denies thyroid disease. Hematology/oncology: He denies blood disorders or internal malignancies. He has had anemia on all labs since September 2015.. Psychiatric: He denies anxiety depression or other mental health issues Musk skeletal: He had a right hip fracture repair repair in 1999. He denies other bone joint or muscle disorders. - Constitutional Vitals: Temp Pulse Resp BP Pulse Ox 98.4 F 56 18 168/78 96 04/04/18 07:13 04/04/18 07:13 04/04/18 08:58 04/04/18 07:13 04/04/18 08:58 Exam: Gen.: He is a well-developed overweight male who appears in no acute distress at present time HEENT: Head is atraumatic and normocephalic. Eyes: EOMI. There is no scleral icterus. Mouth: Mucosa is moist. Neck: Supple and nontender. There is no thyromegaly or adenopathy noted. Heart: Regular with 2-3/6 systolic murmur heard at the left sternal border. S1 and S2 are soft. No ectopics are heard. Lungs: No wheezes or crackles are heard Chest: He has no tenderness of his chest wall to palpation. Abdomen: Soft and nontender. No masses or guarding are noted. Extremities: He is wearing ROSARIO hose bilaterally which I did not remove. There is no edema palpated of his lower legs through the ROSARIO hose. He has minimal DJD changes of his hands. Neurologic: Mental status: He is talkative and a good historian. Cranial nerves : Smile is symmetric. Forehead wrinkles bilaterally. Tongue protrudes midline. EOMI. Motor: There is no pronator drift. Cerebellar: Finger to nose is intact bilaterally. Skin: Warm and dry Internal Med - H&P Results - Labs CBC & Chem 7: 04/03/18 16:13 04/03/18 16:13 Labs: Cardiac Enzymes 04/03/18 04/04/18 Range/Units 22:29 04:20 Troponin I < 0.03 < 0.03 (< 0.04) ng/mL - VTE Documentation of Mechanical Device: Graduated compression elastic hosiery
[2018-04-04] MEDS: Isosorbide MONOnitrate (24 HR) 30 MG TAB.ER.24H PO SCH (10:55)
[2018-04-04] MEDS: Bumetanide 1 MG TABLET PO SCH (10:55)
[2018-04-04 17:34] LABS: % Iron Saturation 7 % (20-55); Iron 37 mcg/dL (65-175); Transferrin 388 mg/dL (203-362)
[2018-04-04] MEDS: *HR* HYDROcodone/Acet 7.5/325 mg TABLET PO PRN (17:39)
[2018-04-04 17:52] LABS: Ferritin 9 ng/mL (20-250)
[2018-04-04 17:58] LABS: Folate 9.5 ng/mL (3.0-16.0)
[2018-04-04 18:09] LABS: Estimated Average Glucose 180 mg/dl; Hemoglobin A1C 7.9 %
[2018-04-05 07:08] VITALS: BP 157/72
[2018-04-05] MEDS: Tiotropium 18 MCG inhalation IH SCH (08:21)
[2018-04-05] MEDS: Insulin LISPRO 300 UNITS/3 ML VIAL SQ SCH (08:43)
[2018-04-05] MEDS: *HR* Metformin 500 MG TABLET PO SCH (08:44)
[2018-04-05] MEDS: Bumetanide 1 MG TABLET PO SCH (08:44)
[2018-04-05] MEDS: Isosorbide MONOnitrate (24 HR) 30 MG TAB.ER.24H PO SCH (08:44)
[2018-04-05] MEDS: Aspirin Enteric Coated 81 MG Tablet PO SCH (08:44)
[2018-04-05] MEDS: *HR* HYDROcodone/Acet 7.5/325 mg TABLET PO PRN (08:44)
[2018-04-05] MEDS: Lisinopril 20 MG TABLET PO SCH (08:45)
[2018-04-05] MEDS ORDERED: Cyanocobalamin (B-12) 1,000 MCG/ML VIAL IM ONE (09:40)
--- NOTE | 2018-04-05 09:46 | Discharge Summary ---
Date of Encounter: 04/05/18 Time of Encounter: 09:35 - Discharge Diagnosis (1) Chest pain Priority: Primary Status: Resolved Qualifiers: Chest pain type: precordial pain Qualified Code(s): R07.2 - Precordial pain (2) Anemia Priority: Secondary Status: Chronic Qualifiers: Anemia type: unspecified type Qualified Code(s): D64.9 - Anemia, unspecified (3) Hypertension Priority: Secondary Status: Chronic Qualifiers: Hypertension type: essential hypertension Qualified Code(s): I10 - Essential (primary) hypertension (4) ASHD (arteriosclerotic heart disease) Priority: Secondary Status: Chronic (5) COPD (chronic obstructive pulmonary disease) Priority: Secondary Status: Chronic Qualifiers: COPD type: unspecified COPD Qualified Code(s): J44.9 - Chronic obstructive pulmonary disease, unspecified (6) DM type 2 (diabetes mellitus, type 2) Priority: Secondary Status: Chronic Qualifiers: Diabetes mellitus 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 Salazar is a 72 year old male who came to emergency room stating he had increased dyspnea on exertion and a dull chest pain that seemed worse with activity onset 2-3 days previously. He denies cough. He did not take nitroglycerin pills at home. He was evaluated in emergency room and admitted to [facility] for ongoing care needs. Initial orders were written by the emergency room physician. I saw him on April 04 and performed a history and physical. Repeat cardiac enzymes showed no evidence of myocardial damage. He was given 2 sublingual Nitrostat and had complete resolution of chest discomfort after the second pill. I started him on Imdur. He had no further chest pain during his hospital stay while at rest or during ambulation. His PCP can monitor and refer to cardiology for further diagnostic studies such as heart catheter/stress test as needed. Anemia testing showed iron 37, transferrin saturation 7%, transferrin 388, ferritin 9, B12 128, and folate 9.5. He was given a B12 injection and started on oral B12 and ferrous sulfate with vitamin C at discharge. Metoprolol and lisinopril were continued for heart failure. He was also given Bumex and [place] and had resolution of his dyspnea. Room air oximetry on 6 minute walk was ordered prior to discharge to see if home oxygen is needed. When I saw him on April 05 he felt improved and stable for discharge home. He will follow with his PCP Moraima Kaufman CNP within 1 week. - Time Spent with Patient Total time spent providing and/or coordinating discharge services: - Discharge Medications Prescriptions: Ascorbic Acid [Vitamin C] 500 mg PO DAILY #30 tablet.er Bumetanide [Bumex] 1 mg PO DAILY #30 tablet Cyanocobalamin (B-12) [Vitamin B12] 1,000 mcg PO DAILY #30 tablet Ferrous Sulfate 325 mg PO DAILY #30 tablet Isosorbide MONOnitrate (24 HR) [Imdur] 30 mg PO DAILY #30 tab.er.24h Nitroglycerin [Nitrostat] 0.4 mg SL Q5M PRN #1 vial PRN Reason: Chest Pain Potassium Chloride 10 meq PO DAILY #30 tab.er.prt Home Medications: Aspirin Enteric Coated [Aspirin EC] 81 mg PO BID 06/07/15 [History] Lisinopril [Zestril] 20 mg PO DAILY 06/07/15 [History] Metoprolol [Lopressor] 50 mg PO BID 06/07/15 [History] Omeprazole [PriLOSEC] 20 mg PO DAILY 06/07/15 [History] Albuterol Sulfate [Ventolin Hfa] 2 puff IH Q6H PRN 12/13/16 [History] Metformin HCl [Glucophage] 1,000 mg PO BID 12/13/16 [History] Tiotropium [place] [Spiriva Respimat] 2 puff IH DAILY 12/13/16 [History] Pravastatin Sodium [Pravachol] 20 mg PO DAILY 01/15/17 [History] Fluticasone/Vilanterol [Breo Ellipta 200-25 Mcg INH] 1 puff IH BID 01/19/17 [ History] HYDROcodone/Acet 7.5/325 mg [[place] 7.5-325 mg] 1 tab PO BID PRN 01/19/17 [ History] Ascorbic Acid [Vitamin C] 500 mg PO DAILY #30 tablet.er 04/05/18 [Rx] Bumetanide [Bumex] 1 mg PO DAILY #30 tablet 04/05/18 [Rx] Cyanocobalamin (B-12) [Vitamin B12] 1,000 mcg PO DAILY #30 tablet 04/05/18 [Rx] Ferrous Sulfate 325 mg PO DAILY #30 tablet 04/05/18 [Rx] Isosorbide MONOnitrate (24 HR) [Imdur] 30 mg PO DAILY #30 tab.er.24h 04/05/18 [ Rx] Nitroglycerin [Nitrostat] 0.4 mg SL Q5M PRN #1 vial 04/05/18 [Rx] Potassium Chloride 10 meq PO DAILY #30 tab.er.prt 04/05/18 [Rx] Allergies/Adverse Reactions: 3 Allergy/AdvReac Type Severity Reaction Status Date / Time No Known Allergies Allergy Verified 12/13/16 11:51 Date of admission: 04/03/18 17:09 Primary care physician: Moraima Kaufman CNP - Constitutional Vitals: Temp Pulse Resp BP Pulse Ox 98.0 F 55 20 157/72 92 04/05/18 07:06 04/05/18 07:06 04/05/18 08:22 04/05/18 07:06 04/05/18 08:22 - Patient Status Disposition: Home, Self-Care Condition: Fair Functional capacity at discharge: independent ambulation - Discharge Instructions Follow Up With: Mroaima Kaufman CNP [Primary Care Provider] - 1 week - Diet and Activity Activity: resume usual activities as tolerated Diet: diabetic diet - VTE Documentation of Mechanical Device: Graduated compression elastic hosiery
== END 2018-04-05 11:11 | disposition home or self-care (01) ==
LOC: INPPIK 15:53 → EMEROOPIK 15:53 → INPPIK 17:30
PROVIDERS: ADMIT Internal Medicine; ATTEND Internal Medicine

== ENCOUNTER 2018-08-15 21:49 | Observation (INO) ==
[2018-08-15 22:42] LABS: Basophils % 0.4 %; Eosinophils # 0.1 K/mcL (0.0-0.6); Eosinophils % 0.7 %; Hematocrit 36.3 % (37.5-50.1); Hemoglobin 11.2 g/dL (12.9-16.9); Immature Granulocytes % 4.9 % (0-4); Lymphocytes % 17.5 %; Mean Corpuscular HGB Conc 30.9 g/dL (31.6-35.5); Mean Corpuscular Volume 77.7 fL (83.0-100.0); Mean Platelet Volume 9.8 fL (9.4-12.4); Monocytes # 0.9 K/mcL (0.0-1.3); Monocytes % 7.7 %; Neutrophils # 7.8 K/mcL (1.6-8.9); Platelet Count 270 K/mcL (140-400); Red Blood Count 4.67 M/mcL (4.19-5.50); Red Cell Distribution Width 16.8 % (11.5-14.5); Segmented Neutrophils % 68.8 %
[2018-08-15 22:44] LABS: Basophils # 0.1 K/mcL (0.0-0.2)
[2018-08-15 23:00] LABS: BUN/Creatinine Ratio 18 (6-26); Blood Urea Nitrogen 18 mg/dL (8-23); Calcium 9.1 mg/dL (8.6-10.3); Carbon Dioxide 27 mEq/L (23-29); Chloride 97 mEq/L (98-107); Glucose 237 mg/dL (70-105); Osmolality,Calculated 286 (280-300); Potassium 4.2 mEq/L (3.5-5.1); Sodium 133 mEq/L (136-145); eGFR For Non-African Americans > 60 (> 60)
[2018-08-15 23:01] LABS: Troponin I 0.03 ng/mL (< 0.04)
--- NOTE | 2018-08-15 23:08 | Emergency Department Note ---
Disposition Clinical Impression: Chest pain Qualifiers: Chest pain type: unspecified Qualified Code(s): R07.9 - Chest pain, unspecified Disposition: Admitted As Inpatient Condition: Fair Referrals: NONE,PCP [Primary Care Provider] - Forms: ED Satisfaction Letter Time of Disposition: 23:45 Chest Pain HPI - General Chief Complaint: ED Chest Pain Stated Complaint: chest pain Time Seen by Provider: 08/15/18 22:14 Source: patient, EMS Mode of arrival: EMS Limitations: no limitations Vital Signs Reviewed: Yes Nursing Notes Reviewed: Yes - History of Present Illness Pt complaint: chest pain Onset (ago): hour(s) (An hour and a half prior to arrival) Duration: constant, now resolved Onset: during rest Pain Location: left chest Severity: moderate Severity scale (1-10): 4 Quality: heaviness Pain Radiation: LUE Improves with: nitroglycerin (Squad gave him a nitroglycerin which alleviated his discomfort.) Worsens with: nothing Context: other (Patient was admitted to [facility] on August 09 had a heart catheterization which did not show any acute blockages. He was put on Plavix and was to be managed medically.) Associated symptoms: Denies: nausea, vomiting, diaphoresis, dyspnea Treatments prior to arrival chest pain: nitroglycerin (By squad with relief of discomfort.) - Related Data Home Medications Medication Instructions Recorded Confirmed Aspirin Enteric Coated [Aspirin EC] 81 mg PO BID 06/07/15 08/15/18 Metoprolol [Lopressor] 50 mg PO BID 06/07/15 08/15/18 Albuterol Sulfate [Ventolin Hfa] 2 puff IH Q6H PRN 12/13/16 08/15/18 Metformin HCl [Glucophage] 1,000 mg PO BID 12/13/16 08/15/18 Pravastatin Sodium [Pravachol] 20 mg PO DAILY 01/15/17 08/15/18 Ascorbic Acid [Vitamin C] 500 mg PO DAILY 05/08/18 08/15/18 Cyanocobalamin (Vitamin B-12) 500 mcg PO DAILY 05/08/18 08/15/18 [Vitamin B-12] HYDROcodone/Acet 7.5/325 mg [[place] 1 - 2 tab PO Q12H PRN 05/08/18 08/15/18 7.5-325 mg] Clopidogrel [Plavix] 75 mg PO DAILY 08/08/18 08/15/18 Gabapentin [Neurontin] 900 mg PO TID 08/08/18 08/15/18 Lisinopril [Zestril] 20 mg PO DAILY 08/08/18 08/15/18 Omeprazole [PriLOSEC] 20 mg PO DAILY 08/08/18 08/15/18 Previous Rx's Medication Instructions Recorded Azithromycin [Zithromax] 500 mg PO DAILY #3 tablet 08/09/18 Budesonide/Formoterol 160/4.5 2 puff IH BIDR 30 Days #1 inh 08/09/18 [Symbicort 160/4.5] GuaiFENesin ER [Mucinex] 600 mg PO BID 10 Days #20 tbbp.12hr 08/09/18 Menthol [Cough Drops] 9.1 mg PO Q2H PRN #30 lozenge 08/09/18 Ranolazine [Ranexa] 500 mg PO BID 30 Days #60 08/09/18 tab.er.12h Tiotropium [Spiriva] 18 mcg IH DAILYR #30 inh 08/09/18 Allergies Allergy/AdvReac Type Severity Reaction Status Date / Time No Known Allergies Allergy Verified 05/08/18 07:29 All systems ED: reviewed and negative except as stated. Constitutional: Denies: fever, chills ENT ED: Denies: ear pain, throat pain, congestion Cardiovascular: Reports: chest pain. Denies: palpitations, dyspnea on exertion Respiratory: Denies: cough, dyspnea, wheezes Gastrointestinal: Denies: abdominal pain, nausea, vomiting, diarrhea Musculoskeletal: Denies: back pain, neck pain Integumentary: Denies: rash Neurological: Denies: headache Chest Pain PMH - Past Medical History Medical history: Reports: arthritis, CHF, COPD, coronary artery disease, DVT, diabetes, GERD, glaucoma, hyperlipidemia, hypertension, kidney stones, myocardia l infarction, peripheral artery disease, valvular heart disease Surgical history: Reports: angioplasty/stent, coronary bypass (CABG), orthopedic, other, vascular surgery, other Psychiatric history: Reports: no psych history - Social History Smoking Status: Former smoker Alcohol use: Reports: none Drug use: Reports: none Physical Exam - General Limitations: no limitations General appearance: alert, in no apparent distress - Head Head exam: atraumatic, normocephalic, normal inspection - Eye Eye exam: Present: normal appearance, PERRL, EOMI. Absent: scleral icterus, conjunctival injection - ENT ENT exam: normal exam, normal oropharynx, mucous membranes moist, normal external ear exam - Neck Neck exam: Present: normal inspection, full ROM, trachea midline. Absent: meningismus - Chest Chest inspection: Present: normal inspection, symmetric chest wall rise. Absent: tenderness - Respiratory Respiratory exam: Present: normal lung sounds bilaterally. Absent: respiratory distress, wheezes - Cardiovascular Cardiovascular exam: Present: regular rate, normal rhythm, normal heart sounds - Abdominal Exam Abdominal exam: Present: soft, Non-Tender, normal bowel sounds - Extremities Exam Extremities exam: Present: normal inspection. Absent: pedal edema - Neurological Exam Neurological exam: Present: alert, oriented X3 - Psychiatric Psychiatric exam: Present: normal affect, normal mood - Skin Skin exam: Present: warm, dry. Absent: rash Course Course Narrative: Patient presented with a complaint of chest pain that was a pressure feeling center of his chest and left side of his chest that went into his left arm. This is identical to chest discomfort he had a week ago when he was at [facility] and underwent heart catheterization. That heart catheterization showed no acute disease but showed a lot of disease and cardiology recommended medical management. The patient had the same discomfort tonight and it was relieved with nitroglycerin but he just had a heart catheter a week ago and they are not recommending any interventions. At this time in the ER his EKG is normal but is also symptom free. I will do a chest pain workup and monitor the patient for symptoms. His physician will be based on diagnostic results and reevaluation. - Reevaluation(s) Reevaluation #1: Initial labs are negative. Initial troponin is negative. Twelve-lead EKG does not show any ischemia. We have not seen any EKG changes on the 12-lead monitor. The patient has had no further chest discomfort. He is to be admitted for serial enzymes given the recent history. I spoke with the hospitalist already. He is accepted the patient for admission. We will check another troponin in the ER to make sure is not climbing acutely first. If that is negative then the patient will be admitted to the floor. Time: 23:44 - Consultations Consultation #1: Dr. Blackmon, hospitalist - I discussed the case with the hospitalist. He is accepted the patient for admission to the hospital providing the repeat troponin is negative. Time: 23:30 Vital Signs Temperature 97.1 F L 08/15/18 21:55 Pulse Rate 72 08/15/18 21:55 Respiratory Rate 18 08/15/18 21:55 Blood Pressure 97/64 08/15/18 21:55 O2 Sat by Pulse Oximetry 93 08/15/18 21:55 Temperature 98.7 F 08/15/18 22:25 Pulse Rate 66 08/15/18 23:17 Respiratory Rate 20 08/15/18 23:17 Blood Pressure 116/61 08/15/18 23:17 O2 Sat by Pulse Oximetry 97 08/15/18 23:17 Oxygen Delivery Oxygen Delivery Nasal Cannula Chest Pain - Medical Records Medical records reviewed: Yes I reviewed the patient's medical records. - Lab Data Lab results reviewed: Yes I reviewed the patient's lab results. Result diagrams: 08/15/18 22:37 08/15/18 22:37 Lab Results 08/15/18 08/15/18 Range/Units 22:37 22:37 WBC 11.3 H (4.3-11.1) K/mcL RBC 4.67 (4.19-5.50) M/mcL Hgb 11.2 L (12.9-16.9) g/dL Hct 36.3 L (37.5-50.1) % MCV 77.7 L (83.0-100.0) fL MCH 24.0 L (28.0-33.3) pg MCHC 30.9 L (31.6-35.5) g/dL RDW 16.8 H (11.5-14.5) % Plt Count 270 (140-400) K/mcL MPV 9.8 (9.4-12.4) fL Immature Gran % 4.9 H (0-4) % Seg Neutrophils % 68.8 % Lymphocytes % 17.5 % Monocytes % 7.7 % Eosinophils % 0.7 % Basophils % 0.4 % Neutrophils # 7.8 (1.6-8.9) K/mcL Lymphocytes # 2.0 (0.6-4.6) K/mcL Monocytes # 0.9 (0.0-1.3) K/mcL Eosinophils # 0.1 (0.0-0.6) K/mcL Basophils # 0.1 (0.0-0.2) K/mcL Sodium 133 L (136-145) mEq/L Potassium 4.2 (3.5-5.1) mEq/L Chloride 97 L (98-107) mEq/L Carbon Dioxide 27 (23-29) mEq/L BUN 18 (8-23) mg/dL Creatinine 1.00 (0.70-1.30) mg/dL Est GFR ( Amer) > 60 (> 60) Est GFR (Non-Af Amer) > 60 (> 60) BUN/Creatinine Ratio 18 (6-26) Glucose 237 H (70-105) mg/dL Calculated Osmolality 286 (280-300) Calcium 9.1 (8.6-10.3) mg/dL Troponin I 0.03 (< 0.04) ng/mL - Radiology Data Radiology results reviewed: Yes I reviewed the patient's radiology results. - EKG Data EKG attestation: Yes I reviewed and interpreted this EKG. EKG results narrative: Twelve-lead EKG performed at 2157. Ordered, reviewed and interpreted by ED physician. Sinus rhythm at a rate of 73. Normal axis. Good hour progression across to precordium. No acute ischemic changes. Intervals are within normal limits.
[2018-08-16] MEDS ORDERED: Naloxone 0.4 MG/ML INJ IVP PRN (02:09)
[2018-08-16] MEDS: Nitroglycerin 0.4 MG TAB.SUBL SL PRN ×2 (03:36→14:39)
[2018-08-16] MEDS: *HR* Metformin 500 MG TABLET PO SCH ×2 (07:37→16:55)
[2018-08-16] MEDS: Ranolazine 500 MG TAB.ER.12H PO SCH ×2 (08:20→21:58)
[2018-08-16] MEDS: Gabapentin 300 MG CAPSULE PO SCH ×3 (08:20→22:01)
[2018-08-16] MEDS: Aspirin Enteric Coated 81 MG Tablet PO SCH ×2 (08:20→21:59)
[2018-08-16] MEDS ORDERED: Lisinopril 20 MG TABLET PO SCH (09:00)
[2018-08-16] MEDS: Tiotropium 18 MCG inhalation IH SCH (09:52)
[2018-08-16] MEDS: Budesonide/Formoterol 160/4.5 1 PUFF INH IH SCH ×2 (09:53→22:23)
--- NOTE | 2018-08-16 14:39 | Internal Med History&Physical ---
Date of Encounter: 08/16/18 Time of Encounter: 14:00 Assessment and Plan (1) Chest pain Current visit: Yes Status: Acute Suspect myocardial ischemic origin. Repeat cardiac enzymes were ordered through emergency room. Beta lilia will be increased and Imdur will be started. He will continue on Ranexa, aspirin and Plavix. Qualifiers: Chest pain type: chest pain due to myocardial ischemia Qualified Code(s): I25.9 - Chronic ischemic heart disease, unspecified (2) Anemia Current visit: No Status: Chronic Anemia testing will be ordered in a.m. Qualifiers: Anemia type: unspecified type Qualified Code(s): D64.9 - Anemia, unspecified (3) Hypertension Current visit: No Status: Chronic Increase Toprol to 75 mg twice a day. Decrease lisinopril to 10 mg daily to avoid hypotension. Qualifiers: Hypertension type: essential hypertension Qualified Code(s): I10 - Essential (primary) hypertension (4) DM type 2 (diabetes mellitus, type 2) Current visit: No Status: Chronic Hemoglobin A1c will be checked in a.m. Continue Glucophage. Order Accu-Cheks with SSI. Qualifiers: Diabetes mellitus alf insulin use: without bed bug exterminator use Diabetes mellitus complication status: with circulatory complication Diabetes mellitus complication detail: with peripheral angiopathy without gangrene Qualified Code(s): E11.51 - Type 2 diabetes mellitus with diabetic peripheral angiopathy without gangrene (5) Hyperlipidemia Current visit: Yes Status: Chronic Check lipid profile in a.m. Qualifiers: Hyperlipidemia type: unspecified Qualified Code(s): E78.5 - Hyperlipidemia, unspecified Internal Medicine - H&P: HPI Chief complaint: Chest discomfort Admitted From: Emergency Dept Plans for Post Hospital Care: Home History of present illness: Mr. Salazar is a 73 year old male who came to emergency room complaining of discomfort in his left chest onset approximate 9 PM while watching television. It was similar to multiple previous similar episodes of chest discomfort that has been diagnosed as angina from ischemic heart disease. He reports he had no nitroglycerin pills available for use so called EMS. He was given 4 aspirin [81 mg] and Nitrostat by EMS personnel on their arrival and was transported to emergency room. He was evaluated and admitted to [facility] floor for ongoing care needs. He states he still has slight chest discomfort the present time at a level 3/10. His cardiovascular history is significant for hypertension. He has known ASHD status post [place] in 1978. He had three-vessel CABG surgery 2008. He had a coronary stent placed in the left diagonal 2009. On 05/08/2018 repeat heart catheter showed in-stent restenosis resulting in PTCA of the left diagonal with reduction of stenosis from 70% to 0%. Another heart catheter was done 08/07/2018 for recurrent chest pain which showed no significant findings from the April 2018 catheter. No additional intervention was done. There was 100% stenosis in the proximal RCA with [id number] collaterals. There was 100% percent stenosis in the proximal circumflex, 30% stenosis in the distal LMCA, and 70% stenosis in the mid LAD with stent widely patent. The NAYLOR to LAD was patent. The SVG to first marginal and SVG to right PDA were occluded. He had aortic valve replacement 2011 at [facility]. He had an echocardiogram 08/08/2018 which showed LVEF of 65-70%. The interventricular septum and posterior wall thickness measurements were 1.46 and 1.06 cm respectively. The E/A ratio was 0.9. He had a large DVT approximately 1999 following right hip surgery but has not had known pulmonary embolism. He had right common femoral endarterectomy by Dr. Alfonso December 2016. Past Med Surg Social Fam HX - Past Medical History Medical history: arthritis, CHF, COPD, coronary artery disease, DVT, diabetes, GERD, glaucoma, hyperlipidemia, hypertension, kidney stones, myocardial infarc tion, peripheral artery disease, valvular heart disease Additional medical history: AORTIC STENOSIS, AORTIC ANEURYSM. pneumonia. hiatial hernia. aortic aneurysm Psychiatric history: no psych history - Past Surgical History Surgical History: angioplasty/stent, coronary bypass (CABG), orthopedic, other, vascular surgery, other Additional surgical history: AORTIC VALVE REPLACEMENT 2011. CABG X 2,ENDARTERECTOMY. Right hip, RIGHT HIP SURGERY, RIGHT KNEE ARTHROSCOPY, LASER SURGERY BILAT EYES. heart cath - Social History Smoking Status: Former smoker Smokeless Tobacco Status: No Alcohol use: none Drug use: none - Family History Father Family Member Ethnicity: Non- Living Status: Hx Family Cardiac Disorders: Yes ([place]) Hx Family Respiratory Disorders: No Hx Family Cancer: No Hx Family GI Disorders: No Hx Family Endocrine Disorder: No Hx Family Neuromuscular Disorders: No Hx Family Neurologic Disorders: No Hx Family HEENT Disorders: No Hx Family Autoimmune Disorders: No Internal Medicine - H&P: Meds Aspirin Enteric Coated [Aspirin EC] 81 mg PO BID 06/07/15 [History] Metoprolol [Lopressor] 50 mg PO BID 06/07/15 [History] Albuterol Sulfate [Ventolin Hfa] 2 puff IH Q6H PRN 12/13/16 [History] Metformin HCl [Glucophage] 1,000 mg PO BID 12/13/16 [History] Pravastatin Sodium [Pravachol] 20 mg PO DAILY 01/15/17 [History] Ascorbic Acid [Vitamin C] 500 mg PO DAILY 05/08/18 [History] Cyanocobalamin (Vitamin B-12) [Vitamin B-12] 500 mcg PO DAILY 05/08/18 [History] HYDROcodone/Acet 7.5/325 mg [[place] 7.5-325 mg] 1 - 2 tab PO Q12H PRN 05/08/18 [History] Clopidogrel [Plavix] 75 mg PO DAILY 08/08/18 [History] Gabapentin [Neurontin] 900 mg PO TID 08/08/18 [History] Lisinopril [Zestril] 20 mg PO DAILY 08/08/18 [History] Omeprazole [PriLOSEC] 20 mg PO DAILY 08/08/18 [History] Azithromycin [Zithromax] 500 mg PO DAILY #3 tablet 08/09/18 [Rx] Budesonide/Formoterol 160/4.5 [Symbicort 160/4.5] 2 puff IH BIDR 30 Days #1 inh 08/09/18 [Rx] GuaiFENesin ER [Mucinex] 600 mg PO BID 10 Days #20 tbbp.12hr 08/09/18 [Rx] Menthol [Cough Drops] 9.1 mg PO Q2H PRN #30 lozenge 08/09/18 [Rx] Ranolazine [Ranexa] 500 mg PO BID 30 Days #60 tab.er.12h 08/09/18 [Rx] Tiotropium [Spiriva] 18 mcg IH DAILYR #30 inh 08/09/18 [Rx] Allergy/AdvReac Type Severity Reaction Status Date / Time No Known Allergies Allergy Verified 05/08/18 07:29 All Systems PM: A 10-system review of systems was performed and is negative for pertinent findings except as documented above in the HPI. Review of systems: Review of systems from his March 2018 [facility] hospitalization were reviewed and revised as below. Gen.: His weight has minimally changed from 104.326 kg on 01/15/2017 to 105.857 kg on admission now Cardiovascular: As per history of present illness Respiratory: He smoked from age [age] up to 1-1/2 packs per day. He has not had PFTs but claims a diagnosis of COPD. He does not wear home oxygen. He has been diagnosed with JESSICA but states he cannot tolerate CPAP mask. GI: He has NAFLD. He has a hiatal hernia and has had colon polyps removed. He denies other disorders of his liver gallbladder or exocrine pancreas : He had kidney stones several years ago with ultrasonic removal. He denies other kidney bladder prostate disorders Neurologic: He denies large distribution strokes or seizures. Endocrine: He was diagnosed with DM 2 approximately 2010. He has hypertriglyceridemia. He denies thyroid disease. Hematology/oncology: He denies blood disorders or internal malignancies. He has had anemia on all labs since September 2015 and was started on supplemental iron/vitamin C and B12 at time of his March 2018 [facility] discharge. He states he has continued these medications. Psychiatric: He denies anxiety depression or other mental health issues Musk skeletal: He had a right hip fracture repair repair in 1999. He denies other bone joint or muscle disorders. - Constitutional Vitals: Temp Pulse Resp BP Pulse Ox 98.5 F 56 20 111/67 97 08/16/18 11:28 08/16/18 11:28 08/16/18 11:28 08/16/18 11:28 08/16/18 11:28 Exam: Gen.: He is a well-developed overweight male resting comfortably in bed who appears in no acute distress at present time HEENT: Head is atraumatic and normocephalic. Eyes: EOMI. There is no scleral icterus. Mouth: Mucosa is moist. Neck: Supple and nontender. There is no thyromegaly or adenopathy noted. Heart: Regular without murmurs gallops or ectopics Lungs: No wheezes or crackles are heard. Chest: He is not tenderness chest wall to palpation. Abdomen: Soft and nontender. No masses or guarding are noted. Extremities: He is wearing ROSARIO hose bilaterally which I did not remove. There is no cyanosis visible of his toenails. He has minimal DJD changes of his hands. Neurologic: Mental status: He is talkative and a good historian. Cranial nerves: Smile is symmetric. Forehead wrinkles bilaterally. Tongue protrudes midline. EOMI. Motor: There is no pronator drift. Cerebellar: Finger to nose is intact bilaterally. Skin: Warm and dry Internal Med - H&P Results - Labs CBC & Chem 7: 08/15/18 22:37 08/15/18 22:37 Labs: Short CBC 08/15/18 Range/Units 22:37 WBC 11.3 H (4.3-11.1) K/mcL Hgb 11.2 L (12.9-16.9) g/dL Hct 36.3 L (37.5-50.1) % Plt Count 270 (140-400) K/mcL Neutrophils # 7.8 (1.6-8.9) K/mcL BMP 08/15/18 22:37 Sodium 133 L Potassium 4.2 Chloride 97 L Carbon Dioxide 27 BUN 18 Creatinine 1.00 Glucose 237 H Calcium 9.1 Cardiac Enzymes 08/15/18 08/16/18 08/16/18 Range/Units 22:37 00:40 03:30 Troponin I 0.03 0.04 H* 0.03 (< 0.04) ng/mL 08/16/18 Range/Units 08:04 Troponin I 0.03 (< 0.04) ng/mL - Impressions ITS Impressions Chest X-Ray 08/15/18 22:25 IMPRESSION: 1. No focal airspace disease. 2. Cardiomegaly. D/ / Jax Walton MD / Jax Walton MD Interpreting Provider: Jax Walton MD
[2018-08-16] MEDS: Isosorbide MONOnitrate (24 HR) 60 MG TAB.ER.24H PO SCH (14:51)
[2018-08-16] MEDS ORDERED: *HR* HYDROcodone/Acet 7.5/325 mg TABLET PO PRN (19:23)
[2018-08-17 06:23] LABS: Hematocrit 36.1 % (37.5-50.1); Mean Corpuscular HGB Conc 30.5 g/dL (31.6-35.5); Mean Corpuscular Hemoglobin 24.2 pg (28.0-33.3); Mean Corpuscular Volume 79.3 fL (83.0-100.0); Mean Platelet Volume 9.8 fL (9.4-12.4); Platelet Count 240 K/mcL (140-400); Red Blood Count 4.55 M/mcL (4.19-5.50); Red Cell Distribution Width 16.5 % (11.5-14.5)
[2018-08-17 06:49] LABS: Chol/HDL Ratio 6.5 (0-4.9)
[2018-08-17 07:15] LABS: Lymphocytes # 2.5 K/mcL (0.6-4.6); Monocytes # 0.2 K/mcL (0.0-1.3); Neutrophils # 5.7 K/mcL (1.6-8.9)
[2018-08-17 07:16] LABS: Anisocytosis 2+ (Not Present); Basophilic Stippling 1+ (Not Present); Poikilocytosis 1+ (Not Present)
[2018-08-17 07:17] LABS: Microcytosis Present (Not Present); Platelet Estimate Normal (Normal)
[2018-08-17 07:20] LABS: Large Platelets Present (Not Present)
[2018-08-17 07:21] LABS: Toxic Vacuolation Present (Not Present)
[2018-08-17 07:22] LABS: Dohle Bodies Present (Not Present)
[2018-08-17] MEDS: *HR* Metformin 500 MG TABLET PO SCH (07:24)
[2018-08-17] MEDS: Aspirin Enteric Coated 81 MG Tablet PO SCH (08:23)
[2018-08-17] MEDS: Isosorbide MONOnitrate (24 HR) 60 MG TAB.ER.24H PO SCH (08:23)
[2018-08-17] MEDS: Ranolazine 500 MG TAB.ER.12H PO SCH (08:25)
[2018-08-17] MEDS: Gabapentin 300 MG CAPSULE PO SCH (08:26)
[2018-08-17 09:33] VITALS: BP 113/64
[2018-08-17] MEDS: Tiotropium 18 MCG inhalation IH SCH (09:49)
[2018-08-17] MEDS: Budesonide/Formoterol 160/4.5 1 PUFF INH IH SCH (09:50)
--- NOTE | 2018-08-17 09:53 | Discharge Summary ---
Orders not resulted at time of discharge: Pending orders 08/17/18 05:55 Ferritin AM 0400 Folate AM 0400 Hgb A1C AM 0400 Iron Profile AM 0400 Vitamin B12 AM 0400 Date of Encounter: 08/17/18 Time of Encounter: 09:40 - Discharge Diagnosis (1) Chest pain Priority: Primary Status: Acute Qualifiers: Chest pain type: chest pain due to myocardial ischemia Qualified Code(s): I25.9 - Chronic ischemic heart disease, unspecified (2) Anemia Priority: Secondary Status: Chronic Qualifiers: Anemia type: unspecified type Qualified Code(s): D64.9 - Anemia, unspecified (3) Hypertension Priority: Secondary Status: Chronic Qualifiers: Hypertension type: essential hypertension Qualified Code(s): I10 - Essential (primary) hypertension (4) DM type 2 (diabetes mellitus, type 2) Priority: Secondary Status: Chronic Qualifiers: Diabetes mellitus usp insulin use: without moth exterminator use Diabetes mellitus complication status: with circulatory complication Diabetes mellitus complication detail: with peripheral angiopathy without gangrene Qualified Code(s): E11.51 - Type 2 diabetes mellitus with diabetic peripheral angiopathy without gangrene (5) Hyperlipidemia Priority: Secondary Status: Chronic Qualifiers: Hyperlipidemia type: unspecified Qualified Code(s): E78.5 - Hyperlipidemia, unspecified Hospital course: Mr. Salazar is a 73 year old male who came to emergency room complaining of discomfort in his left chest onset approximate 9 PM while watching television. It was similar to multiple previous similar episodes of chest discomfort that has been diagnosed as angina from ischemic heart disease. He reports he had no nitroglycerin pills available for use so called EMS. He was given 4 aspirin [81 mg] and Nitrostat by EMS personnel on their arrival and was transported to emergency room. He was evaluated and admitted to [facility] for ongoing care needs. Initial orders were written by the emergency room physician. I saw him on August 16 and performed a history and physical. Repeat cardiac enzymes showed slight rise of troponin to 0.04 with additional follow-up labs showing decrease to 0.03. When I saw him he reported ongoing chest discomfort he was given a Nitrostat and started him on Imdur. His pain completely resolved within a few minutes and did not recur. Lopressor dose was increased to 75 mg twice a day. Lisinopril dose was decreased to 10 mg daily to avoid hypotension. He will remain on this regimen upon discharge. Lipid profile showed triglycerides 358, cholesterol 169, LDL 71, HDL 26, and total/HDL ratio 6.5. Pravachol was discontinued and he was started on atorvastatin 80 mg daily. Anemia testing and hemoglobin A1c were ordered with results pending at time of discharge. I reviewed with him the reports of heart caths from April 2018 and July 2018. I explained why medical management was chosen following the July 2018 cath. On the morning of August 17 he felt significantly improved. He denied any chest pain and wished to be discharged home. He will follow with his PCP Moraima Kaufman CNP within 1 week. - Time Spent with Patient Total time spent providing and/or coordinating discharge services: - Discharge Medications Prescriptions: Nitroglycerin 0.4 mg SL Q5MIN PRN #1 vial PRN Reason: Chest Pain Atorvastatin Calcium 80 mg PO HS #30 tablet Isosorbide MONOnitrate (24 HR) [Imdur] 60 mg PO DAILY #30 tab.er.24h Lisinopril [Zestril] 10 mg PO DAILY #30 tablet Metoprolol [Lopressor] 75 mg PO BID #90 tablet Home Medications: Aspirin Enteric Coated [Aspirin EC] 81 mg PO BID 06/07/15 [History] Albuterol Sulfate [Ventolin Hfa] 2 puff IH Q6H PRN 12/13/16 [History] Metformin HCl [Glucophage] 1,000 mg PO BID 12/13/16 [History] Ascorbic Acid [Vitamin C] 500 mg PO DAILY 05/08/18 [History] Cyanocobalamin (Vitamin B-12) [Vitamin B-12] 500 mcg PO DAILY 05/08/18 [History] HYDROcodone/Acet 7.5/325 mg [[place] 7.5-325 mg] 1 - 2 tab PO Q12H PRN 05/08/18 [History] Clopidogrel [Plavix] 75 mg PO DAILY 08/08/18 [History] Gabapentin [Neurontin] 900 mg PO TID 08/08/18 [History] Budesonide/Formoterol 160/4.5 [Symbicort 160/4.5] 2 puff IH BIDR 30 Days #1 inh 08/09/18 [Rx] GuaiFENesin ER [Mucinex] 600 mg PO BID 10 Days #20 tbbp.12hr 08/09/18 [Rx] Menthol [Cough Drops] 9.1 mg PO Q2H PRN #30 lozenge 08/09/18 [Rx] Ranolazine [Ranexa] 500 mg PO BID 30 Days #60 tab.er.12h 08/09/18 [Rx] Tiotropium [Spiriva] 18 mcg IH DAILYR #30 inh 08/09/18 [Rx] Atorvastatin Calcium 80 mg PO HS #30 tablet 08/17/18 [Rx] Isosorbide MONOnitrate (24 HR) [Imdur] 60 mg PO DAILY #30 tab.er.24h 08/17/18 [Rx] Lisinopril [Zestril] 10 mg PO DAILY #30 tablet 08/17/18 [Rx] Metoprolol [Lopressor] 75 mg PO BID #90 tablet 08/17/18 [Rx] Nitroglycerin 0.4 mg SL Q5MIN PRN #1 vial 08/17/18 [Rx] Omeprazole [PriLOSEC] 20 mg PO DAILY PRN #0 08/17/18 [Rx] Allergies/Adverse Reactions: Allergy/AdvReac Type Severity Reaction Status Date / Time No Known Allergies Allergy Verified 05/08/18 07:29 Date of admission: 08/16/18 01:40 Primary care physician: Moraima Kaufman FINANCIAL AUDITOR - Constitutional Vitals: Temp Pulse Resp BP Pulse Ox 97.6 F 60 65 113/64 91 08/17/18 07:40 08/17/18 08:22 08/17/18 09:32 08/17/18 09:32 08/17/18 07:40 - Patient Status Disposition: Home, Self-Care Condition: Fair - Discharge Instructions Follow Up With: NONE,PCP [Primary Care Provider] - 1 week - Diet and Activity Activity: resume usual activities as tolerated Diet: diabetic diet - VTE Documentation of Mechanical Device: Graduated compression elastic hosiery
[2018-08-17 10:07] LABS: % Iron Saturation 15 % (20-55); Iron 63 mcg/dL (65-175); Transferrin 298 mg/dL (203-362)
[2018-08-17 10:25] LABS: Ferritin 26 ng/mL (20-250)
[2018-08-17 10:31] LABS: Estimated Average Glucose 217 mg/dl; Hemoglobin A1C 9.2 %
[2018-08-17 10:32] LABS: Folate 8.8 ng/mL (3.0-16.0)
--- NOTE | 2018-08-20 09:10 | Electrocardiograph Report ---
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
== END 2018-08-17 10:40 | disposition home or self-care (01) ==
LOC: EMEROOPIK 21:49 → INPPIK 21:49
PROVIDERS: ADMIT Internal Medicine; ATTEND Internal Medicine

== ENCOUNTER 2019-07-26 16:28 | Inpatient (IN) ==
[2019-07-26] MEDS: Ipratropium/Albuterol Neb 3 ML ONE ×2 (16:40→17:08)
[2019-07-26] MEDS ORDERED: Ipratropium/Albuterol Neb 3 ML IH ONE (16:40)
[2019-07-26] MEDS ORDERED: Ipratropium/Albuterol Neb 3 ML IH STA (16:49)
[2019-07-26 16:56] LABS: Basophils % 0.1 %; Hematocrit 38.3 % (37.5-50.1); Hemoglobin 11.6 g/dL (12.9-16.9); Immature Granulocytes % 0.8 % (0-4); Lymphocytes # 1.6 K/mcL (0.6-4.6); Lymphocytes % 6.7 %; Mean Corpuscular HGB Conc 30.3 g/dL (31.6-35.5); Mean Corpuscular Hemoglobin 23.1 pg (28.0-33.3); Mean Corpuscular Volume 76.1 fL (83.0-100.0); Mean Platelet Volume 10.2 fL (9.4-12.4); Monocytes # 1.9 K/mcL (0.0-1.3); Neutrophils # 20.5 K/mcL (1.6-8.9); Platelet Count 216 K/mcL (140-400); Red Blood Count 5.03 M/mcL (4.19-5.50); Red Cell Distribution Width 16.5 % (11.5-14.5); Segmented Neutrophils % 84.4 %; White Blood Count 24.3 K/mcL (4.3-11.1)
[2019-07-26 17:16] LABS: BUN/Creatinine Ratio 13 (6-26); Blood Urea Nitrogen 12 mg/dL (8-23); Calcium 9.1 mg/dL (8.6-10.3); Carbon Dioxide 29 mEq/L (23-29); Chloride 93 mEq/L (98-107); Glucose 202 mg/dL (70-105); Osmolality,Calculated 276 (280-300); Potassium 4.7 mEq/L (3.5-5.1); Sodium 130 mEq/L (136-145); eGFR For African Americans > 60 (> 60); eGFR For Non-African Americans > 60 (> 60)
[2019-07-26 17:17] LABS: Troponin I 0.03 ng/mL (< 0.04)
[2019-07-26] MEDS ORDERED: Acetaminophen 325 MG TABLET PO STA (17:28)
[2019-07-26] MEDS ORDERED: Ipratropium Neb 0.5 MG NEBULIZER IH ONE (17:44)
[2019-07-26] MEDS ORDERED: levoFLOXacin 750 MG/150 ML 750 MG/150 ML BAG IVPB SCH (18:00)
[2019-07-26] MEDS ORDERED: 0.9 % Sodium Chloride 500 ML IVC ONE (19:11)
[2019-07-26] MEDS ORDERED: 0.9 % Sodium Chloride 500 ML ONE (19:17)
[2019-07-26] MEDS ORDERED: Ipratropium/Albuterol Neb 3 ML IH SCH (21:00)
[2019-07-26] MEDS ORDERED: Insulin LISPRO 300 UNITS/3 ML VIAL SQ SCH (21:38)
[2019-07-26] MEDS ORDERED: Nitroglycerin 0.4 MG TAB.SUBL SL PRN (21:38)
[2019-07-26] MEDS ORDERED: D5% in Water 1,000 ML IVC PRN (21:38)
[2019-07-26] MEDS ORDERED: *HR* Dextrose 50 % in Water (Vial) 50 ML VIAL IVP PRN (21:38)
[2019-07-26] MEDS ORDERED: Dextrose Gel 15 GM/37.5 ML TUBE PO PRN ×2 (21:38)
[2019-07-26] MEDS: Gabapentin 300 MG CAPSULE PO SCH (22:01)
[2019-07-26] MEDS: Apixaban 5 MG TABLET PO SCH (22:01)
[2019-07-26] MEDS: *HR* HYDROcodone/Acet 7.5/325 mg TABLET PO PRN ×2 (22:21→22:26)
[2019-07-26] MEDS: Ipratropium/Albuterol Neb 3 ML IH SCH (23:09)
[2019-07-26] MEDS ORDERED: Azithromycin 500 MG in 0.9 % Sodium Chloride 250 ML IVPB SCH (23:45)
[2019-07-27] MEDS ORDERED: MethylPREDNISolone 40 MG/ML VIAL IVP SCH ×2
[2019-07-27] MEDS ORDERED: Piperacillin/Tazobactam 3.375 GM in 0.9 % Sodium Chloride Mini Bag 100 ML IVPB SCH
[2019-07-27 00:05] LABS: Bilirubin,Urine Negative (Negative); Blood,Urine Trace-intact (Negative); Clarity,Urine Clear (Clear); Color,Urine Yellow (Yellow); Glucose,Urine (UA) Normal (Normal); Ketones,Urine Negative (Negative); Leukocyte Esterase,Urine Negative (Negative); Nitrite,Urine Negative (Negative); Protein,Urine Negative (Neg-Trace); Specific Gravity,Urine 1.015 (1.010-1.025); Urobilinogen,Urine Normal (Normal)
[2019-07-27 00:40] LABS: Bacteria,Urine Few per hpf (None-Few); Hyaline Casts,Urine Few per lpf (None-Few); RBC,Urine 0-3 per hpf (0-3); Squamous Epithelial Cell,Urine Few per lpf (None-Few); WBC,Urine 0-3 per hpf (0-3)
[2019-07-27] MEDS: Ipratropium/Albuterol Neb 3 ML IH SCH ×3 (04:31→13:25)
[2019-07-27 04:39] LABS: Hematocrit 35.4 % (37.5-50.1); Hemoglobin 10.6 g/dL (12.9-16.9); Mean Corpuscular HGB Conc 29.9 g/dL (31.6-35.5); Mean Corpuscular Hemoglobin 23.1 pg (28.0-33.3); Mean Corpuscular Volume 77.3 fL (83.0-100.0); Mean Platelet Volume 10.5 fL (9.4-12.4); Platelet Count 177 K/mcL (140-400); Red Blood Count 4.58 M/mcL (4.19-5.50); Red Cell Distribution Width 16.5 % (11.5-14.5); White Blood Count 23.9 K/mcL (4.3-11.1)
[2019-07-27 04:53] LABS: BUN/Creatinine Ratio 17 (6-26); Blood Urea Nitrogen 17 mg/dL (8-23); Calcium 8.9 mg/dL (8.6-10.3); Carbon Dioxide 30 mEq/L (23-29); Chloride 96 mEq/L (98-107); Glucose 284 mg/dL (70-105); Magnesium 1.9 mg/dL (1.6-2.6); Osmolality,Calculated 290 (280-300); Potassium 4.8 mEq/L (3.5-5.1); Sodium 134 mEq/L (136-145); eGFR For African Americans > 60 (> 60); eGFR For Non-African Americans > 60 (> 60)
[2019-07-27] MEDS ORDERED: *HR* Digoxin 0.5 MG/2 ML AMPUL IVP ONE (06:14)
[2019-07-27] MEDS ORDERED: *HR* Metoprolol 5 MG/5 ML VIAL IVP ONE (06:48)
[2019-07-27 07:23] LABS: Anisocytosis 1+ (Not Present); Lymphocytes # 0.5 K/mcL (0.6-4.6); Neutrophils # 22.9 K/mcL (1.6-8.9); Polychromasia 1+ (Not Present)
[2019-07-27] MEDS ORDERED: *HR* Metformin 500 MG TABLET PO SCH (08:00)
[2019-07-27] MEDS ORDERED: Aspirin Enteric Coated 81 MG Tablet PO SCH (09:00)
[2019-07-27] MEDS ORDERED: *HR* GlipiZIDE XL (24 HR) 10 MG TABLET PO SCH (09:00)
[2019-07-27] MEDS ORDERED: NON-FORMULARY MEDICATION 1 EACH EACH (Tiotropium Br/Olodaterol Hcl [Stiolto Respimat Inhal PO SCH (09:00)
[2019-07-27] MEDS ORDERED: Cyanocobalamin (B-12) 1,000 MCG TABLET PO SCH (09:00)
[2019-07-27] MEDS ORDERED: Isosorbide MONOnitrate (24 HR) 60 MG TAB.ER.24H PO SCH (09:00)
[2019-07-27] MEDS ORDERED: Ascorbic Acid 500 MG TABLET PO SCH (09:00)
[2019-07-27] MEDS ORDERED: 0.9 % Sodium Chloride 1,000 ML ONE (09:01)
[2019-07-27] MEDS: Gabapentin 300 MG CAPSULE PO SCH ×2 (09:05→15:03)
[2019-07-27] MEDS: Apixaban 5 MG TABLET PO SCH (09:05)
[2019-07-27] MEDS: Insulin LISPRO 300 UNITS/3 ML VIAL SQ SCH ×2 (09:09→12:36)
[2019-07-27 09:20] LABS: Ferritin 45 ng/mL (20-250)
[2019-07-27] MEDS ORDERED: Diltiazem CD (24hr) 120 MG CAPSULE PO STA (09:23)
[2019-07-27] MEDS ORDERED: 0.9 % Sodium Chloride 250 ML IV ONE (09:30)
[2019-07-27] MEDS ORDERED: 0.9 % Sodium Chloride 1,000 ML IVC SCH (10:30)
[2019-07-27] MEDS ORDERED: 0.9 % Sodium Chloride 500 ML IVC ONE (14:24)
[2019-07-27 14:40] VITALS: BP 118/79
[2019-07-27] MEDS ORDERED: Morphine Sulfate 2 MG/ML SYRINGE IVP PRN (14:46)
[2019-07-27] MEDS ORDERED: levoFLOXacin 750 MG/150 ML 750 MG/150 ML BAG IVPB SCH (18:00)
[2019-07-27] MEDS ORDERED: Azithromycin 500 MG in 0.9 % Sodium Chloride 250 ML IVPB SCH (23:00)
== END 2019-07-27 16:02 | disposition short-term general hospital (02) | DRG 190 ==
LOC: EMEROOPIK 16:28 → INPPIK 16:28
PROVIDERS: ADMIT Family Medicine; ATTEND Family Medicine